=== PATIENT | male | born 1965 | race Caucasian/White ===

== ENCOUNTER → 2017-08-10 | Outpatient (CLI) | payer OTHER ==
[2017-08-10 11:12] LABS: ALT/SGPT 31 U/L (12-78); AST/SGOT 31 U/L (15-37); BLOOD UREA NITROGEN 19 mg/dl (7-18); BUN/CREATININE RATIO 19.4 (10-20); CALCIUM 9.4 mg/dl (8.5-10.1); CARBON DIOXIDE 30 mmol/L (21-32); CHLORIDE 103 mmol/L (98-107); CREATININE 0.96 mg/dl (0.60-1.40); GLUCOSE 97 mg/dl (70-99); POTASSIUM 4.2 mmol/L (3.5-5.1); SODIUM 140 mmol/L (136-145)
[2017-08-10 11:15] LABS: ALB/GLOB RATIO 1.1 (0.9-2); ALKALINE PHOSPHATASE 78 U/L (45-117); CHOLESTEROL 243 mg/dl (0-200); HDL CHOLESTEROL 81 mg/dl; LDL CHOLESTEROL CALCULATED 113 mg/dl; TRIGLYCERIDES 247 mg/dl (0-150); VERY LOW DENSITY LIPOPROT CALC 49 mg/dl
== END | disposition home or self-care (01) ==
LOC: C.LABBC 08:57
PROVIDERS: ATTEND Neuromusculoskeletal Medicine & OMM
DX: Z00.00 Encounter for general adult medical examination without abnormal findings (principal); E66.3 Overweight; E78.5 Hyperlipidemia, unspecified

== ENCOUNTER 2020-12-31 23:42 | Inpatient (IN) ==
[2021-01-01 00:53] LABS: Hematocrit (blood only) 36.8 % (42-52); Hemoglobin 13.3 g/dL (14.0-18.0); Immature Granulocytes # (auto) 0.01 K/uL (0.00-0.02); Immature Granulocytes % (auto) 0.2 %; Lymphocytes # (auto) 0.55 K/uL (1.2-3.4); Lymphocytes % (auto) 9.3 %; Mean Corpuscular Hemoglobin 29.8 pg (25-34); Mean Corpuscular Hgb Conc 36.1 g/dL (32-36); Mean Corpuscular Volume 82.5 fL (80-100); Mean Platelet Volume 9.7 fL (7.4-10.4); Monocytes % (auto) 6.8 %; Neutrophils # (auto) 4.93 K/uL (1.4-6.5); Neutrophils % (auto) 83.7 %; Platelet Count 188 K/uL (130-400); RDW Coefficient of Variation 11.7 % (11.5-14.5); RDW Standard Deviation 35.6 fL (36.4-46.3); Red Blood Count 4.46 M/uL (4.7-6.1); White Blood Count 5.89 K/uL (4.8-10.8)
[2021-01-01 01:05] LABS: INR 1.1 (0.9-1.1); Partial Thromboplastin Ratio 1.1; Partial Thromboplastin Time 29.2 Seconds (21.0-31.0); Prothrombin Time 10.9 Seconds (9.0-12.0)
[2021-01-01 01:12] LABS: Alanine Aminotransferase 79 U/L (12-78); Aspartate Aminotransferase 86 U/L (15-37); Blood Urea Nitrogen 17 mg/dl (7-18); Calcium 8.8 mg/dl (8.5-10.1); Carbon Dioxide 27 mmol/L (21-32); Chloride 97 mmol/L (98-107); Creatinine Clr Calc Pharmacy 101.1 ml/min; Est GFR (African American) 95.5; Est GFR (Non-African American) 82.4; Glucose 129 mg/dl (70-99); Magnesium 2.1 mg/dl (1.8-2.4); Potassium 3.5 mmol/L (3.5-5.1); Sodium 133 mmol/L (136-145)
[2021-01-01 01:17] LABS: Albumin Globulin Ratio 0.8 (0.9-2); Alkaline Phosphatase 86 U/L (45-117); Bilirubin,Total 0.5 mg/dl (0.2-1); Globulin 3.9 gm/dl (2.5-4.0); Total Protein 6.9 gm/dl (6.4-8.2); Troponin I < 0.015 ng/ml (0-0.045)
[2021-01-01] MEDS ORDERED: SODIUM CHLORIDE 0.9% 1000ML 1,000 ML IV ONE (01:38)
[2021-01-01] MEDS ORDERED: ACETAMINOPHEN 500 MG TAB PO STA (01:38)
[2021-01-01] MEDS ORDERED: SODIUM CHLORIDE 0.9% 500 ML IV SCH (01:45)
[2021-01-01] MEDS ORDERED: dexAMETHasone 6 MG in SYRINGE 0 ML IV STA (03:23)
[2021-01-01] MEDS ORDERED: DEXAMETHASONE SOD INJ 4 MG/ML VIAL ONE (03:25)
--- NOTE | 2021-01-01 03:28 | History & Physical Report ---
Date of Service January 01, 2021 Assessment & Plan (1) COVID-19: 55yo C male with Severe Covid-19. Hypoxia with saturation of 78% on room air on arrival. Presently improved on nasal cannula - 92% on 5L. He is febrile and tachypneic. Labs with lymphopenia, mild hyponatremia with Os=011 and mild elevation of liver enzymes - AST=86, ALT=79. CXR with bilateral airspace disease. -Admit to PCU -Maintain isolation precautions - contact and airborne -Check ESR, CRP, Ferritin, LDH, Ddimer, BNP, CK and Procalcitonin -Check Mg and PO4 and replete as needed -Supplemental O2 as needed to maintain saturations 94% -Encourage patient to self-prone where able -Dexamethasone 6mg IV daily - first dose ordered to be given now in ER -Patient is late in illness - positive test from 12/23/20 therefore would most likely not benefit from treatment with Remdesivir or convalescent plasma -Tylenol as needed for pain or fever -Tessalon as needed for cough -Albuterol HFA as needed for SOB Present on Admission?: Yes (2) Depression with anxiety: Chronic -Continue Fluoxetine -Continue Hydroxyzine 50mg po BID as needed for anxiety Present on Admission?: Yes (3) Hyperuricemia: Chronic. Stable -Continue Allopurinol 100mg po daily F/E/N - Patient given NSS x 1.5L in ER, encourage PO intake, monitor electrolytes and replete as needed, Mg and PO4 pending, regular diet as tolerated Ppx - Lovenox 40 BID Code - Full per discussion with patient Dispo - Admit to PCU Present on Admission?: Yes History of Present Illness Chief Complaint: Shortness of breath Primary Care Provider: DO Marquis Galvez Duncan is a 55yo male presenting with Covid-19 PNA, hypoxia. Patient reports having a dry cough ongoing for several weeks as well as fever. He was found to be positive for Covid-19 on 12/23/20. He has been at home with family in quarantine for the last several days. He was seen by his PCP on 12/29/20 via Telehealth visit with complaint of ongoing cough. He was given prescription for Prednisone 9 day taper and Tessalon as needed. He has had worsening of his shortness of breath over the last three days as well as ongoing dry cough, intermittent fevers and fatigue, myalgias. Patient has been monitoring his oxygen saturations over the last several days - states that they were very low this morning - 70%. He presents today with worsening shortness of breath, persistent cough and concern for hypoxia. Upon arrival to the ER he was noted to be ashen in color and diaphoretic, febrile at 38.1, tachycardic at 101, RR of 22 saturating 78% on room air. His saturation improved with supplemental O2. He is presently 92% on 5L NC. He is tachypneic at 30 breaths/minute Patient with no additional complaints at this time. He complains of cough and SOB, otherwise denies chest pain, palpitations, abdominal pain, nausea, vomiting, diarrhea, loss of taste or smell or syncope. Allergies Allergy/AdvReac Type Severity Reaction Status Date / Time No Known Drug Allergies Allergy Unknown Verified 01/01/21 00:25 Home Medications Medication Instructions Recorded Confirmed Type lansoprazole 15 mg capsule,delayed 15 mg PO DAILY PRN cap 08/22/19 01/01/21 History release fluoxetine 20 mg capsule 20 mg PO DAILY #90 cap 08/26/20 01/01/21 Rx hydroxyzine HCl 50 mg tablet 50 mg PO BID PRN #180 tab 09/03/20 01/01/21 Rx allopurinol 100 mg tablet 100 mg PO DAILY #30 tab 12/15/20 01/01/21 Rx colchicine 0.6 mg tablet 0.6 mg PO .COMPLEX #3 tab 12/16/20 01/01/21 Rx fluticasone 100 mcg-salmeterol 50 1 inh INHALATION BID #60 ea 12/28/20 01/01/21 Rx mcg/dose blistr powdr for inhalation benzonatate 200 mg capsule 200 mg PO TID PRN #30 cap 12/29/20 01/01/21 Rx prednisone 20 mg tablet 20 mg PO DAILY #18 tab 12/29/20 01/01/21 Rx promethazine-DM 6.25 mg-15 mg/5 mL 5 ml PO Q6H PRN #473 ml 12/31/20 01/01/21 Rx oral syrup Past Med/Surg History Medical History Depression with anxiety Dyslipidemia GERD without esophagitis Surgical History H/O colonoscopy H/O inguinal hernia repair H/O knee surgery left Knee ACL H/O sinus surgery H/O: hemorrhoidectomy History of vasectomy Family History Grandmother Breast cancer Brother Skin cancer Other Allergies Cancer Denies family history of Ovarian cancer Prostate cancer Diabetes Heart disease Myocardial infarction Colorectal cancer Lung disease Asthma Social History Smoking Status: Never smoker Hx Alcohol Use: Yes Alcohol type: beer and wine Hx Substance Use: No Preferred Language: [place] Communication Ability: Effective Visual Impairment: No Limitations Hearing Ability: Normal marital status: Current Living Situation: Spouse current occupational status: employed 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 Feels Safe at Home: Yes Childhood Exposure to Second-Hand Smoke: No Dental Care, Regularly: Yes Physical Activity Frequency: 3-4 Times per Week Seatbelt Use: always Sunscreen Use: Yes Review of Systems Review of Systems: All systems reviewed & are unremarkable except as noted in HPI & below Physical Exam Physical Exam: General: patient ill in appearance, AA&O x 4 Skin: warm, moist, intact, no rashes or lesions HEENT: NC/AT, PERRL, EOMI, anicteric sclera, conjunctiva without injection, external ear normal to inspection and nontender, nares patent, moist mucus membranes, dentition intact, no oropharyngeal lesions, neck supple, trachea midline, no LAD, no thyromegaly, no JVD Heart: +S1/S2, regular, no m/r/g Lungs: equal air entry bilaterally, no rales/rhonchi/wheezes Abd: +BS, soft, NT/ND, no masses/organomegaly/ascites Ext: warm, 2+ pulses in UE/LE bilaterally, no clubbing/cyanosis or edema Neuro: nonfocal, patient AA&O x 4, speech intact, no facial droop, moving all extremities on command with equal strength 5/5 Results & Data Results & Data ([facility]) Vital Signs (Past 12 Hours) Vital Signs Temp Pulse Resp BP Pulse Ox 01/01/21 02:03 92 01/01/21 02:01 83 37 H 91 03/20/21 02:00 82 35 H 126/78 90 01/01/21 01:45 84 25 H 91 01/01/21 01:31 85 35 H 91 01/01/21 01:30 86 33 H 123/75 92 01/01/21 01:15 86 28 H 94 01/01/21 01:01 90 29 H 91 01/01/21 01:00 89 27 H 133/79 91 01/01/21 00:56 91 01/01/21 00:45 94 H 31 H 91 01/01/21 00:31 96 H 26 H 93 01/01/21 00:30 98 H 30 H 132/85 92 01/01/21 00:20 24 91 01/01/21 00:15 94 H 25 H 01/01/21 00:12 94 H 24 93 01/01/21 00:06 94 H 27 H 136/79 93 12/31/20 23:54 38.1 C H 101 H 22 127/68 78 L Laboratory Results Lab Results 01/01/21 01/01/21 01/01/21 Range/Units 00:30 00:30 00:30 WBC 5.89 (4.8-10.8) K/uL RBC 4.46 L (4.7-6.1) M/uL Hgb 13.3 L (14.0-18.0) g/dL Hct 36.8 L (42-52) % MCV 82.5 (80-100) fL MCH 29.8 (25-34) pg MCHC 36.1 H (32-36) g/dL RDW Std Deviation 35.6 L (36.4-46.3) fL RDW Coeff of Stephanie 11.7 (11.5-14.5) % Plt Count 188 (130-400) K/uL MPV 9.7 (7.4-10.4) fL Immature Gran % (Auto) 0.2 % Neut % (Auto) 83.7 % Lymph % (Auto) 9.3 % [place] % (Auto) 6.8 % Eos % (Auto) 0.0 % Baso % (Auto) 0.0 % Neut # (Auto) 4.93 (1.4-6.5) K/uL Lymph # (Auto) 0.55 L (1.2-3.4) K/uL [place] # (Auto) 0.40 (0.11-0.59) K/uL Eos # (Auto) 0.00 (0-0.5) K/uL Baso # (Auto) 0.00 (0-0.2) K/uL Immature Gran # (Auto) 0.01 (0.00-0.02) K/uL PT 10.9 (9.0-12.0) Seconds INR 1.1 (0.9-1.1) APTT 29.2 (21.0-31.0) Seconds PTT Ratio 1.1 Sodium 133 L (136-145) mmol/L Potassium 3.5 (3.5-5.1) mmol/L Chloride 97 L (98-107) mmol/L Carbon Dioxide 27 (21-32) mmol/L Anion Gap 9.0 (3-11) BUN 17 (7-18) mg/dl Creatinine 1.02 (0.6-1.4) mg/dl Est Cr Clr Drug Dosing 101.1 ml/min Est GFR ( Amer) 95.5 Est GFR (Non-Af Amer) 82.4 BUN/Creatinine Ratio 17.0 (10-20) Glucose 129 H (70-99) mg/dl Lactate (0.4-2.0) mmol/L Calcium 8.8 (8.5-10.1) mg/dl Magnesium 2.1 (1.8-2.4) mg/dl Total Bilirubin 0.5 (0.2-1) mg/dl AST 86 H (15-37) U/L ALT 79 H (12-78) U/L Alkaline Phosphatase 86 (45-117) U/L Troponin I < 0.015 (0-0.045) ng/ml Total Protein 6.9 (6.4-8.2) gm/dl Albumin 3.0 L (3.4-5.0) gm/dl Globulin 3.9 (2.5-4.0) gm/dl Albumin/Globulin Ratio 0.8 L (0.9-2) 01/01/21 01/01/21 Range/Units 00:30 02:12 WBC (4.8-10.8) K/uL RBC (4.7-6.1) M/uL Hgb (14.0-18.0) g/dL Hct (42-52) % MCV (80-100) fL MCH (25-34) pg MCHC (32-36) g/dL RDW Std Deviation (36.4-46.3) fL RDW Coeff of Stephanie (11.5-14.5) % Plt Count (130-400) K/uL MPV (7.4-10.4) fL Immature Gran % (Auto) % Neut % (Auto) % Lymph % (Auto) % [place] % (Auto) % Eos % (Auto) % Baso % (Auto) % Neut # (Auto) (1.4-6.5) K/uL Lymph # (Auto) (1.2-3.4) K/uL [place] # (Auto) (0.11-0.59) K/uL Eos # (Auto) (0-0.5) K/uL Baso # (Auto) (0-0.2) K/uL Immature Gran # (Auto) (0.00-0.02) K/uL PT (9.0-12.0) Seconds INR (0.9-1.1) APTT (21.0-31.0) Seconds PTT Ratio Sodium (136-145) mmol/L Potassium (3.5-5.1) mmol/L Chloride (98-107) mmol/L Carbon Dioxide (21-32) mmol/L Anion Gap (3-11) BUN (7-18) mg/dl Creatinine (0.6-1.4) mg/dl Est Cr Clr Drug Dosing ml/min Est GFR ( Amer) Est GFR (Non-Af Amer) BUN/Creatinine Ratio (10-20) Glucose (70-99) mg/dl Lactate 2.5 H* 1.1 (0.4-2.0) mmol/L Calcium (8.5-10.1) mg/dl Magnesium (1.8-2.4) mg/dl Total Bilirubin (0.2-1) mg/dl AST (15-37) U/L ALT (12-78) U/L Alkaline Phosphatase (45-117) U/L Troponin I (0-0.045) ng/ml Total Protein (6.4-8.2) gm/dl Albumin (3.4-5.0) gm/dl Globulin (2.5-4.0) gm/dl Albumin/Globulin Ratio (0.9-2) Diagnostic Findings CXR - by my interpretation - appears to have bilateral patchy airspace opacities. No consolidation, effusions, PTX Code Status & VTE Plan VTE Prophylaxis Plan VTE Prophylaxis will be ordered: Yes PG Care Time/CCT Total # of Minutes Spent Total Time Spent with Patient: Total time spent is greater than 50% in coordination of care (as documented) at patient's floor/unit and/or counseling patient: Coding Level of Care Code 24546 Initial Inpt Care Lvl 2 Diagnoses COVID-19 U07.1 Depression with anxiety F41.8 Hyperuricemia E79.0
[2021-01-01] MEDS ORDERED: BENZONATATE 100 MG CAPSULE PO PRN (04:59)
[2021-01-01] MEDS ORDERED: hydrOXYzine HCl 25 MG TAB PO PRN (04:59)
[2021-01-01] MEDS ORDERED: ALBUTEROL HFA 8 GM INHALER INH PRN (04:59)
[2021-01-01] MEDS ORDERED: ONDANSETRON INJ 2 MG/ML 2 ML VIAL IV PRN (04:59)
[2021-01-01 06:20] LABS: C Reactive Protein 9.13 mg/dl (0-0.29); Ferritin 1426.3 ng/ml (8-388); Phosphorus 3.3 mg/dl (2.5-4.9)
[2021-01-01 06:47] LABS: D Dimer 940 ug/L FEU (0-500)
[2021-01-01] MEDS: FLUoxetine HCL 20 MG CAP PO SCH (08:39)
[2021-01-01] MEDS: ENOXAPARIN INJ 40 MG/0.4 ML SYR SQ SCH ×2 (08:39→21:20)
[2021-01-01] MEDS: allopurinoL 100 MG TAB PO SCH (08:40)
--- NOTE | 2021-01-01 08:43 | XRay Report ---
XR chest 1V portable CLINICAL HISTORY: SEPSIS COMPARISON STUDY: 12/24/2019 FINDINGS: The heart is enlarged. There are bilateral pulmonary airspace opacities which given history of sepsis likely represent a multifocal pneumonia. Pulmonary edema could appear similar but is felt to be statistically less likely. There are no significant pleural effusions. No pneumothorax is visua lized.[ IMPRESSION: Cardiomegaly and bilateral pulmonary airspace opacities. Likely diagnostic considerations include a multifocal pneumonia versus pulmonary edema with a multifocal pneumonia favored. Clinical and radiographic follow-up is recommended ACT 112: Negative or not required by law. Electronically signed by: Latrell Eddy M.D. 01/01/2021 8:41 AM
--- NOTE | 2021-01-01 10:12 | Electrocardiogram Report ---
Test Reason : Blood Pressure : / mmHG Vent. Rate : 095 BPM Atrial Rate : 095 BPM P-R Int : 170 ms QRS Dur : 096 ms QT Int : 358 ms P-R-T Axes : 017 -06 035 degrees QTc Int : 449 ms Normal sinus rhythm Normal ECG No previous ECGs available Confirmed by Brandon Drummond ([id number]) on 01/01/2021 10:12:25 AM Referred By: REFERRED SELF Confirmed By:Brandon Drummond
[2021-01-01] MEDS ORDERED: guaiFENesin/CODEINE 100MG/10MG 5ML UDC PO PRN (16:06)
--- NOTE | 2021-01-01 19:21 | Emergency Department Note ---
Impression & Plan Hypoxia, Pneumonia due to severe acute respiratory syndrome coronavirus 2 (SARS-CoV-2) ED Provider Note NAME: CUBA APPLE AGE: 55 SEX: M ARRIVES VIA: Walk-In INFORMANT: Patient ED PROVIDER(S): Liss Sky DO CHIEF COMPLAINT: Shortness of breath PLAN: Disposition: Admitted to the [facility] hospitalist service Condition: Guarded MEDICAL DECISION MAKING: This is a 55-year-old male patient who presents to the emergency department with severe hypoxia presumed secondary to COVID-19. The patient had a positive COVID-19 test 9 days ago. He describes monitoring his pulse ox at home over the past 24 hours and getting readings as low as 50 to 70%. Patient has been coughing for the past couple of days to the point that he is unable to sleep. He was given prednisone by his PCP. Chest x-ray shows severe multifocal pneumonia presumed secondary to COVID-19. O2 saturations are supported greater than 90% on supplemental oxygen. The case was discussed with the [facility] hospitalist and they will evaluate for further management. Triage Nursing notes reviewed and agree with them. Prior medical records reviewed Vital Signs: reviewed and remarkable for hypoxia Differential diagnosis: Congestive heart failure, pulmonary embolism, Covid pneumonia, cardiac ischemia ER treatment provided: Supplemental O2 Diagnostics interpreted by me: ECG: Normal sinus rhythm at a rate of [address] segment elevation or signs of ischemia. There is no ectopy. Cardiac Monitoring: Normal sinus rhythm at a rate of 92 Laboratory studies: See below Imaging studies: As per my interpretation Portable chest x-ray: Cardiomegaly with severe bilateral multifocal pneumonia consistent with Covid pneumonia HPI: 55/M arrives for evaluation of shortness of breath and cough. The patient presents to the emergency department with severe hypoxia presumed secondary to COVID-19. The patient was tested positive approximately 9 days ago but his condition is worsened. Over the past 3 days he has been coughing so much that his PCP prescribed prednisone. He has been monitoring his pulse ox at home and tonight he had readings between 50 and 70. He was transported here for evaluation. He describes that his and daughter and himself have been quarantining in their home on 3 different floors. ROS: See above HPI for pertinent positives & negatives. A total of 10 systems reviewed and were otherwise negative. PAST MEDICAL HISTORY:See Below PAST SURGICAL HISTORY:See Below FAMILY HISTORY:See Below SOCIAL HISTORY:See Below HOME MEDICATIONS:See list ALLERGIES:See list VITALS:See Below PHYSICAL EXAMINATION: HEENT: Head - normocephalic and atraumatic. Pupils are equal, round, and reactive to light. Extraocular eye muscles are intact, and sclera are ani cteric. Nose - moist nasal mucosa without discharge. Mouth - moist buccal mucosa. Oropharynx is nonerythematous and there is no tonsillar exudate or edema noted. Neck: Supple; no JVD or cervical lymphadenopathy Heart: Regular rate and rhythm. There is a normal S1 and S2 with no murmurs, clicks, or gallops appreciated. Lungs: Diminished breath sounds in all lung dunlap Abdomen: Soft, completely nontender, nondistended, with good bowel sounds. There are no palpable pulsatile masses or hepatosplenomegaly. There is no guarding, rigidity, or rebound noted. Extremities: No evidence of cyanosis, clubbing, or edema. There are easily palpable peripheral pulses. Skin: warm and diaphoretic with good turgor and no rashes. ED COURSE: Times/Reassessments: 0015: Patient was evaluated in room C10. A complete history and physical was performed. I donned complete PPE as the patient was known Covid positive. An order was placed for continuous cardiac monitoring. The patient was in a normal sinus rhythm at a rate of 98. She saturation was 90% on 6 L by oxygen mask. The patient appeared tachypneic. A twelve-lead EKG was obtained. A portable chest x-ray was performed. I had a conversation with the patient with regards to his CODE STATUS. He requested that we do everything in the event that his condition declined. 0105: I reevaluated the patient at this time. His O2 saturations remained stable. He is hemodynamically stable. He was started on IV normal saline solution. 0215: I spoke with the patient and gave him results of his x-ray and laboratory studies. He states that he is actually feeling better. Explained that he would require admission to the hospital because of his hypoxia. 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 I discussed the case with the [facility] hospitalist and they will evaluate for further management. I have personally spent greater than 45 minutes of critical care time in the direct management of this patient. This includes bedside care, interpretation of diagnostic studies, and testing, discussion with consultants, patient, and family members, and other required patient management activities. This 45 minutes is in excess of all separately billable procedures. Liss Sky DO Past Med/Surg History Medical History (Updated 01/01/21 @ 20:27 by Liss Sky DO) Depression with anxiety Dyslipidemia GERD without esophagitis Surgical History H/O colonoscopy H/O inguinal hernia repair H/O knee surgery left Knee ACL H/O sinus surgery H/O: hemorrhoidectomy History of vasectomy Family History Grandmother Breast cancer Brother Skin cancer Other Allergies Cancer Denies family history of Ovarian cancer Prostate cancer Diabetes Heart disease Myocardial infarction Colorectal cancer Lung disease Asthma Social History Smoking Status: Never smoker Hx Alcohol Use: Yes Alcohol type: beer and wine Hx Substance Use: No Preferred Language: Honduran Communication Ability: Effective Visual Impairment: No Limitations Hearing Ability: Normal Laundry Aide Required: No Beliefs That Will Affect Care: None marital status: Current Living Situation: Spouse current occupational status: employed 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 Feels Safe at Home: Yes Childhood Exposure to Second-Hand Smoke: No Dental Care, Regularly: Yes Physical Activity Frequency: 3-4 Times per Week Seatbelt Use: always Sunscreen Use: Yes Assistive Devices: None Allergies Allergies Allergy/AdvReac Type Severity Reaction Status Date / Time No Known Drug Allergies Allergy Unknown Verified 01/01/21 00:25 Home Meds Home Medications Medication Instructions Recorded Confirmed lansoprazole 15 mg capsule,delayed 15 mg PO DAILY PRN cap 08/22/19 01/01/21 release Previous Rx's Medication Instructions Recorded fluoxetine 20 mg capsule 20 mg PO DAILY #90 cap 08/26/20 hydroxyzine HCl 50 mg tablet 50 mg PO BID PRN #180 tab 09/03/20 allopurinol 100 mg tablet 100 mg PO DAILY #30 tab 12/15/20 colchicine 0.6 mg tablet 0.6 mg PO .COMPLEX #3 tab 12/16/20 fluticasone 100 mcg-salmeterol 50 1 inh INHALATION BID #60 ea 12/28/20 mcg/dose blistr powdr for inhalation benzonatate 200 mg capsule 200 mg PO TID PRN #30 cap 12/29/20 prednisone 20 mg tablet 20 mg PO DAILY #18 tab 12/29/20 promethazine-DM 6.25 mg-15 mg/5 mL 5 ml PO Q6H PRN #473 ml 12/31/20 oral syrup Results & Data (ED) Vital Signs Vital Signs - 24 hr 12/31/20 23:54 01/01/21 00:06 01/01/21 00:12 Temperature 38.1 C H Temperature Source Temporal Artery Scan Pulse Rate 101 H 94 H 94 H Pulse Rate from SpO2 Sensor 94 H 92 H Respiratory Rate 22 27 H 24 Respiratory Effort / Characteristics Non-Labored Spontaneous Respiratory Depth Normal Blood Pressure 127/68 136/79 Blood Pressure Mean 87 98 Pulse Oximetry 78 L 93 93 Oxygen Delivery Method Room Air Oxygen Flow Rate Sepsis Recent Fever Within 48 Hours Yes Sepsis New/Unexplained Change in Mental Status No Sepsis Action Taken by Nursing Physician Notified 01/01/21 00:15 01/01/21 00:20 01/01/21 00:30 Temperature Temperature Source Pulse Rate 94 H 98 H Pulse Rate from SpO2 Sensor 98 H Respiratory Rate 25 H 24 30 H Respiratory Effort / Characteristics Spontaneous Accessory Muscle Use Labored Short of Breath Respiratory Depth Blood Pressure 132/85 Blood Pressure Mean 100 Pulse Oximetry 91 92 Oxygen Delivery Method Nasal Cannula Oxygen Flow Rate 5 Sepsis Recent Fever Within 48 Hours Sepsis New/Unexplained Change in Mental Status Sepsis Action Taken by Nursing 01/01/21 00:31 01/01/21 00:45 01/01/21 00:56 Temperature Temperature Source Pulse Rate 96 H 94 H Pulse Rate from SpO2 Sensor 97 H 95 H Respiratory Rate 26 H 31 H Respiratory Effort / Characteristics Respiratory Depth Blood Pressure Blood Pressure Mean Pulse Oximetry 93 91 91 Oxygen Delivery Method Nasal Cannula Nasal Cannula Nasal Cannula Oxygen Flow Rate 5 5 Sepsis Recent Fever Within 48 Hours Sepsis New/Unexplained Change in Mental Status Sepsis Action Taken by Nursing 01/01/21 01:00 01/01/21 01:01 01/01/21 01:15 Temperature Temperature Source Pulse Rate 89 90 86 Pulse Rate from SpO2 Sensor 89 89 86 Respiratory Rate 27 H 29 H 28 H Respiratory Effort / Characteristics Respiratory Depth Blood Pressure 133/79 Blood Pressure Mean 97 Pulse Oximetry 91 91 94 Oxygen Delivery Method Oxygen Flow Rate Sepsis Recent Fever Within 48 Hours Sepsis New/Unexplained Change in Mental Status Sepsis Action Taken by Nursing 01/01/21 01:30 01/01/21 01:31 01/01/21 01:45 Temperature Temperature Source Pulse Rate 86 85 84 Pulse Rate from SpO2 Sensor 86 85 84 Respiratory Rate 33 H 35 H 25 H Respiratory Effort / Characteristics Respiratory Depth Blood Pressure 123/75 Blood Pressure Mean 91 Pulse Oximetry 92 91 91 Oxygen Delivery Method Oxygen Flow Rate Sepsis Recent Fever Within 48 Hours Sepsis New/Unexplained Change in Mental Status Sepsis Action Taken by Nursing 01/01/21 02:00 01/01/21 02:01 01/01/21 02:03 Temperature Temperature Source Pulse Rate 82 83 Pulse Rate from SpO2 Sensor 83 83 Respiratory Rate 35 H 37 H Respiratory Effort / Characteristics Respiratory Depth Blood Pressure 126/78 Blood Pressure Mean 94 Pulse Oximetry 90 91 92 Oxygen Delivery Method Nasal Cannula Oxygen Flow Rate 5 Sepsis Recent Fever Within 48 Hours Sepsis New/Unexplained Change in Mental Status Sepsis Action Taken by Nursing 01/01/21 02:10 01/01/21 02:20 01/01/21 02:30 Temperature Temperature Source Pulse Rate 88 86 86 Pulse Rate from SpO2 Sensor 88 86 86 Respiratory Rate 31 H 20 28 H Respiratory Effort / Characteristics Respiratory Depth Blood Pressure Blood Pressure Mean Pulse Oximetry 92 92 91 Oxygen Delivery Method Oxygen Flow Rate Sepsis Recent Fever Within 48 Hours Sepsis New/Unexplained Change in Mental Status Sepsis Action Taken by Nursing 01/01/21 02:40 01/01/21 02:50 Temperature Temperature Source Pulse Rate 86 82 Pulse Rate from SpO2 Sensor 87 81 Respiratory Rate 25 H 31 H Respiratory Effort / Characteristics Respiratory Depth Blood Pressure Blood Pressure Mean Pulse Oximetry 89 L 90 Oxygen Delivery Method Oxygen Flow Rate Sepsis Recent Fever Within 48 Hours Sepsis New/Unexplained Change in Mental Status Sepsis Action Taken by Nursing Laboratory Data Result diagrams: 01/01/21 00:30 01/01/21 00:30 Lab Results 01/01/21 01/01/21 01/01/21 Range/Units 00:30 00:30 00:30 WBC 5.89 (4.8-10.8) K/uL RBC 4.46 L (4.7-6.1) M/uL Hgb 13.3 L (14.0-18.0) g/dL Hct 36.8 L (42-52) % MCV 82.5 (80-100) fL MCH 29.8 (25-34) pg MCHC 36.1 H (32-36) g/dL RDW Std Deviation 35.6 L (36.4-46.3) fL RDW Coeff of Stephanie 11.7 (11.5-14.5) % Plt Count 188 (130-400) K/uL MPV 9.7 (7.4-10.4) fL Immature Gran % (Auto) 0.2 % Neut % (Auto) 83.7 % Lymph % (Auto) 9.3 % Walker % (Auto) 6.8 % Eos % (Auto) 0.0 % Baso % (Auto) 0.0 % Neut # (Auto) 4.93 (1.4-6.5) K/uL Lymph # (Auto) 0.55 L (1.2-3.4) K/uL Walker # (Auto) 0.40 (0.11-0.59) K/uL Eos # (Auto) 0.00 (0-0.5) K/uL Baso # (Auto) 0.00 (0-0.2) K/uL Immature Gran # (Auto) 0.01 (0.00-0.02) K/uL PT 10.9 (9.0-12.0) Seconds INR 1.1 (0.9-1.1) APTT 29.2 (21.0-31.0) Seconds PTT Ratio 1.1 Sodium 133 L (136-145) mmol/L Potassium 3.5 (3.5-5.1) mmol/L Chloride 97 L (98-107) mmol/L Carbon Dioxide 27 (21-32) mmol/L Anion Gap 9.0 (3-11) BUN 17 (7-18) mg/dl Creatinine 1.02 (0.6-1.4) mg/dl Est Cr Clr Drug Dosing 101.1 ml/min Est GFR ( Amer) 95.5 Est GFR (Non-Af Amer) 82.4 BUN/Creatinine Ratio 17.0 (10-20) Glucose 129 H (70-99) mg/dl Lactate (0.4-2.0) mmol/L Calcium 8.8 (8.5-10.1) mg/dl Magnesium 2.1 (1.8-2.4) mg/dl Total Bilirubin 0.5 (0.2-1) mg/dl AST 86 H (15-37) U/L ALT 79 H (12-78) U/L Alkaline Phosphatase 86 (45-117) U/L Troponin I < 0.015 (0-0.045) ng/ml Total Protein 6.9 (6.4-8.2) gm/dl Albumin 3.0 L (3.4-5.0) gm/dl Globulin 3.9 (2.5-4.0) gm/dl Albumin/Globulin Ratio 0.8 L (0.9-2) 01/01/21 01/01/21 Range/Units 00:30 02:12 WBC (4.8-10.8) K/uL RBC (4.7-6.1) M/uL Hgb (14.0-18.0) g/dL Hct (42-52) % MCV (80-100) fL MCH (25-34) pg MCHC (32-36) g/dL RDW Std Deviation (36.4-46.3) fL RDW Coeff of Stephanie (11.5-14.5) % Plt Count (130-400) K/uL MPV (7.4-10.4) fL Immature Gran % (Auto) % Neut % (Auto) % Lymph % (Auto) % Walker % (Auto) % Eos % (Auto) % Baso % (Auto) % Neut # (Auto) (1.4-6.5) K/uL Lymph # (Auto) (1.2-3.4) K/uL Walker # (Auto) (0.11-0.59) K/uL Eos # (Auto) (0-0.5) K/uL Baso # (Auto) (0-0.2) K/uL Immature Gran # (Auto) (0.00-0.02) K/uL PT (9.0-12.0) Seconds INR (0.9-1.1) APTT (21.0-31.0) Seconds PTT Ratio Sodium (136-145) mmol/L Potassium (3.5-5.1) mmol/L Chloride (98-107) mmol/L Carbon Dioxide (21-32) mmol/L Anion Gap (3-11) BUN (7-18) mg/dl Creatinine (0.6-1.4) mg/dl Est Cr Clr Drug Dosing ml/min Est GFR ( Amer) Est GFR (Non-Af Amer) BUN/Creatinine Ratio (10-20) Glucose (70-99) mg/dl Lactate 2.5 H* 1.1 (0.4-2.0) mmol/L Calcium (8.5-10.1) mg/dl Magnesium (1.8-2.4) mg/dl Total Bilirubin (0.2-1) mg/dl AST (15-37) U/L ALT (12-78) U/L Alkaline Phosphatase (45-117) U/L Troponin I (0-0.045) ng/ml Total Protein (6.4-8.2) gm/dl Albumin (3.4-5.0) gm/dl Globulin (2.5-4.0) gm/dl Albumin/Globulin Ratio (0.9-2) Administered Medications Allopurinol (Allopurinol 100 Mg Tab) 100 mg PO DAILY YASMIN Stop: 01/31/21 08:59 Last Admin: 01/01/21 08:40 Dose: 100 mg Documented by: [id number] Enoxaparin Sodium (Enoxaparin Inj 40 Mg/0.4 Ml Syr) 40 mg SQ Q12H YASMIN Stop: 01/31/21 08:59 Last Admin: 01/01/21 08:39 Dose: 40 mg Documented by: [id number] Fluoxetine HCl (Fluoxetine Hcl 20 Mg Cap) 20 mg PO DAILY YASMIN Stop: 01/31/21 08:59 Last Admin: 01/01/21 08:39 Dose: 20 mg Documented by: [id number] Hydroxyzine HCl (Hydroxyzine Hcl 25 Mg Tab) 50 mg PO BID PRN PRN Reason: anxiety and depression Stop: 01/31/21 04:58 Last Admin: 01/01/21 08:40 Dose: 50 mg Documented by: [id number] Discontinued Medications Acetaminophen (Acetaminophen 500 Mg Tab) 1,000 mg PO NOW STA Stop: 01/01/21 01:39 Last Admin: 01/01/21 01:46 Dose: 1,000 mg Documented by: [id number] Dexamethasone (Dexamethasone Sod Inj 4 Mg/Ml Vial) Confirm Administered Dose 8 mg .ROUTE .STK-MED ONE Stop: 01/01/21 03:26 Last Admin: 01/01/21 03:35 Dose: Not Given Documented by: [id number] Sodium Chloride (Nss 1000ml) 1,000 mls @ 999 mls/hr IV .Q1H1M ONE Stop: 01/01/21 02:38 Last Infusion: 01/01/21 02:55 Dose: 0 mls/hr Documented by: [id number] Admin: 01/01/21 01:46 Dose: 999 mls/hr Documented by: [id number] Sodium Chloride (Nss) 500 mls @ 125 mls/hr IV .Q4H YASMIN Stop: 01/31/21 01:44 Last Infusion: 01/01/21 05:03 Dose: 0 mls/hr Documented by: [id number] Admin: 01/01/21 01:46 Dose: 125 mls/hr Documented by: [id number] Dexamethasone 6 mg/ Syringe 1.5 mls @ 1 mls/min IV NOW STA Stop: 01/01/21 03:24 Last Admin: 01/01/21 03:35 Dose: 1 mls/min Documented by: [id number] Discharge Plan Visit Data Chief Complaint: Illness Stated Complaint: +COVID,POX 65-70%, REF BY DOC ED Provider: Liss Sky Discharge Problem: Hypoxia, Pneumonia due to severe acute respiratory syndrome coronavirus 2 (SARS-CoV-2) Patient Disposition: Admitted As Inpatient Discharge Instructions Interventions: ED Discharge Assessment Last Done: 01/01/21 04:10
--- NOTE | 2021-01-01 21:36 | History & Physical Bridge Note ---
Date of Service January 01, 2021 History & Physical Bridge Note I have examined the patient, reviewed the History & Physical and in the interval since the performance of the History & Physical I have noted the following changes of clinical significance: patient doing reasonably well, was down to 8L oxymask then took his mask off briefly and desaturated to 70's put back up to 10L, took about 2 minutes and was back up to 88%, no distress poor appetite, not drinking much he has been laying on his side periodically, sats will go to 90% on his side discussed the importance of laying prone if he can discussed that this will take several days to a week, don't be alarmed if he requires more oxygen, discussed Vapotherm as next option will give him Codeine for his cough which is dry will try Budesonide nebs for some more anti-inflammatory treatment
[2021-01-02] MEDS: BUDESONIDE 0.25 MG/2 ML VIAL (PULMICORT) NEB SCH (07:56)
[2021-01-02] MEDS: allopurinoL 100 MG TAB PO SCH (08:01)
[2021-01-02] MEDS: FLUoxetine HCL 20 MG CAP PO SCH (08:01)
[2021-01-02] MEDS: ENOXAPARIN INJ 40 MG/0.4 ML SYR SQ SCH ×2 (08:01→21:35)
[2021-01-02] MEDS: dexAMETHasone 6 MG in SYRINGE 0 ML IV SCH (08:02)
--- NOTE | 2021-01-02 11:11 | Hospitalist Progress Note ---
Date of Service January 02, 2021 Assessment & Plan (1) Acute respiratory failure with hypoxia: due to COVID 19 pneumonia on 15L mask today, saturations 89%, takes mask off frequently to eat/drink no distress or labored breathing will try Vapotherm so he can keep oxygen in place all the time he is compliant with laying prone (2) COVID-19: 55yo C male with Severe Covid-19. Hypoxia with saturation of 78% on room air on arrival. Presently improved on nasal cannula - 92% on 5L. He is febrile and tachypneic. Labs with lymphopenia, mild hyponatremia with Oa=405 and mild elevation of liver enzymes - AST=86, ALT=79. CXR with bilateral airspace disease. continue dexamethasone 6mg IV daily, day 2 added Budesonide nebulizer daily eating and drinking well will advance to Vapotherm today since he constantly takes off his oxymask should do well, just needs several days of high flow oxygen he is very frustrated being here, encouraged him to be patient, his lungs need time to heal (3) Depression with anxiety: Chronic -Continue Fluoxetine -Continue Hydroxyzine 50mg po BID as needed for anxiety (4) Hyperuricemia: Chronic. Stable -Continue Allopurinol 100mg po daily Ppx - Lovenox 40 BID Code - Full per discussion with patient Dispo - Admit to PCU Admission and Anticipated Discharge Date Admission Date: January 01, 2021 Subjective patient says he thinks he feels a little bit better than yesterday however, he is up to 15L on oxymask, keeps taking it down to eat/drink and wash up, desaturates quickly without oxygen saturations on the mask are 89% no distress at all, has a dry cough, brought up some phlegm this morning eating a little more, drinking fluids no labs today will call his and update Review of Systems Review of Systems: All systems reviewed & are unremarkable except as noted in Subjective Constitutional: no fever, no fatigue and no weakness Respiratory: + cough, + dyspnea and + dyspnea on exertion; no sputum production and no wheezing Cardiovascular: no chest pain, no palpitations, no syncope and no edema Gastrointestinal: no abdominal pain, no nausea, no vomiting, no constipation and no diarrhea/loose stools Physical Exam Constitutional: WD/WN, vitals as above comfortable; no acute distress Neck: trachea midline, no thyromegaly Respiratory: normal respiratory effort and + cough; no respiratory distress and no labored breathing Auscultation: lungs clear to auscultation bilaterally Cardiovascular: RRR, no murmur, no edema Gastrointestinal (Abdomen): normal bowel sounds, soft, nontender, no hepatosplenomegaly Musculoskeletal: no cyanosis or clubbing, extremities motor strength 5/5 Skin: no rashes, warm and dry Neurologic: patellar DTR's 2+ bilat, sensation intact and PERRL, EOMI, accommodation nl, no face palsy, no dysarthria Psychiatric: A+Ox3, euthymic affect Lymphatic: no cervical or axillary lymphadenopathy Results & Data Results & Data ([facility]) Vital Signs (Past 12 Hours) Vital Signs Temp Pulse Pulse Resp BP Pulse Ox Pulse Ox 01/02/21 11:00 36.8 C 79 20 119/72 92 01/02/21 08:19 71 01/02/21 08:06 73 18 92 01/02/21 04:59 90 01/02/21 01:43 75 01/01/21 23:32 36.6 C 74 18 107/61 91 Medications Administered Current Inpatient Medications Acetaminophen (Acetaminophen 325 Mg Tab) 650 mg PO Q4H PRN PRN Reason: Pain or Fever Stop: 01/31/21 04:58 Albuterol (Albuterol Hfa 8 Gm Inhaler) 2 puffs INH Q4H PRN PRN Reason: Shortness Of Breath Stop: 01/31/21 04:58 Allopurinol (Allopurinol 100 Mg Tab) 100 mg PO DAILY YASMIN Stop: 01/31/21 08:59 Last Admin: 01/02/21 08:01 Dose: 100 mg Documented by: Benzonatate (Benzonatate 100 Mg Capsule) 200 mg PO TID PRN PRN Reason: cough Stop: 01/31/21 04:58 Budesonide (Budesonide 0.25 Mg/2 Ml Vial (Pulmicort)) 0.25 mg NEB DAILY YASMIN Stop: 02/01/21 08:59 Last Admin: 01/02/21 07:56 Dose: 0.25 mg Documented by: Enoxaparin Sodium (Enoxaparin Inj 40 Mg/0.4 Ml Syr) 40 mg SQ Q12H YASMIN Stop: 01/31/21 08:59 Last Admin: 01/02/21 08:01 Dose: 40 mg Documented by: Fluoxetine HCl (Fluoxetine Hcl 20 Mg Cap) 20 mg PO DAILY YASMIN Stop: 01/31/21 08:59 Last Admin: 01/02/21 08:01 Dose: 20 mg Documented by: Guaifenesin/Codeine Phosphate (Guaifenesin/Codeine 100mg/10mg 5ml Udc) 5 ml PO Q6H PRN PRN Reason: Cough Stop: 01/31/21 16:05 Hydroxyzine HCl (Hydroxyzine Hcl 25 Mg Tab) 50 mg PO BID PRN PRN Reason: anxiety and depression Stop: 01/31/21 04:58 Last Admin: 01/01/21 08:40 Dose: 50 mg Documented by: Dexamethasone 6 mg/ Syringe 1.5 mls @ 1 mls/min IV Q24H YASMIN Stop: 02/01/21 08:59 Last Admin: 01/02/21 08:02 Dose: 1 mls/min Documented by: Ondansetron HCl (Ondansetron Inj 2 Mg/Ml 2 Ml Vial) 4 mg IV Q6H PRN PRN Reason: Nausea Stop: 01/31/21 04:58 PG Care Time/CCT Total # of Minutes Spent Total Time Spent: 32 Total Time Spent with Patient: Total time spent is greater than 50% in coordination of care (as documented) at patient's floor/unit and/or counseling patient: Coding Level of Care Code 77603 Subseq Hosp Care Lvl 3 Diagnoses Acute respiratory failure with hypoxia J96.01 COVID-19 U07.1 Depression with anxiety F41.8 Hyperuricemia E79.0
[2021-01-02] MEDS ORDERED: ALUMINUM/MAGNESIUM SUSP 30 ML UDC PO PRN (19:48)
[2021-01-02] MEDS: FAMOTIDINE 20 MG TAB PO SCH (21:35)
[2021-01-03] MEDS: BUDESONIDE 0.25 MG/2 ML VIAL (PULMICORT) NEB SCH (07:24)
[2021-01-03 07:33] LABS: Hematocrit (blood only) 37.6 % (42-52); Hemoglobin 13.3 g/dL (14.0-18.0); Mean Corpuscular Hemoglobin 29.7 pg (25-34); Mean Corpuscular Hgb Conc 35.4 g/dL (32-36); Mean Corpuscular Volume 83.9 fL (80-100); Mean Platelet Volume 9.3 fL (7.4-10.4); Platelet Count 231 K/uL (130-400); RDW Coefficient of Variation 11.7 % (11.5-14.5); RDW Standard Deviation 35.6 fL (36.4-46.3); Red Blood Count 4.48 M/uL (4.7-6.1); White Blood Count 7.12 K/uL (4.8-10.8)
[2021-01-03 08:03] LABS: Albumin Level 2.5 gm/dl (3.4-5.0); BUN Creatinine Ratio 18.9 (10-20); Calcium 8.8 mg/dl (8.5-10.1); Creatinine Clr Calc Pharmacy 116.3 ml/min; Est GFR (African American) 111.6; Est GFR (Non-African American) 96.3; Potassium 3.6 mmol/L (3.5-5.1)
[2021-01-03 08:06] LABS: Albumin Globulin Ratio 0.6 (0.9-2); Bilirubin,Total 0.8 mg/dl (0.2-1); Globulin 4.2 gm/dl (2.5-4.0); Total Protein 6.7 gm/dl (6.4-8.2)
[2021-01-03] MEDS: ENOXAPARIN INJ 40 MG/0.4 ML SYR SQ SCH ×2 (10:04→22:05)
[2021-01-03] MEDS: allopurinoL 100 MG TAB PO SCH (10:04)
[2021-01-03] MEDS: dexAMETHasone 6 MG in SYRINGE 0 ML IV SCH (10:04)
[2021-01-03] MEDS: FLUoxetine HCL 20 MG CAP PO SCH (10:05)
[2021-01-03] MEDS: FAMOTIDINE 20 MG TAB PO SCH (10:05)
[2021-01-03] MEDS ORDERED: MELATONIN 3 MG TAB PO PRN (11:15)
--- NOTE | 2021-01-03 11:50 | Hospitalist Progress Note ---
Date of Service January 03, 2021 Assessment & Plan (1) Acute respiratory failure with hypoxia: due to COVID 19 pneumonia, improving slowly Now on HFNC, saturations 89-90%, tolerating no distress or labored breathing he is compliant with laying prone and is OOB to chair -continue dexamethasone -continue albuterol prn (2) COVID-19: 55yo C male with Severe Covid-19. Hypoxia with saturation of 78% on room air on arrival. Presently improved as above He is no longer febrile or tachypneic. On admission, labs with lymphopenia, mild hyponatremia with Di=812 and mild elevation of liver enzymes - AST=86, ALT=79. CXR with bilateral airspace disease. continue dexamethasone 6mg IV daily, day 3 of 10 -not candidate for Remedsevir or plasma as outside window -continue Budesonide nebulizer daily eating and drinking well wean off HFNC as tolerated - robitussin w/ codeine or tessalon perles for cough -pepcid for GERD espeially while on steroids should do well, just needs several days of high flow oxygen he is very frustrated being here, encouraged him to be patient, his lungs need time to heal (3) Depression with anxiety: Chronic -Continue Fluoxetine -Continue Hydroxyzine 50mg po BID as needed for anxiety -add melatonin prn sleep (4) Hyperuricemia: Chronic. Stable -Continue Allopurinol 100mg po daily Ppx - Lovenox 40 BID Code - Full per discussion with patient Dispo - continued stay on PCU Admission and Anticipated Discharge Date Admission Date: January 01, 2021 Subjective Feeling tired, couldn't sleep much last night. Eating better, appetite picking up, no BM in a couple days but yesterdya was really the first he's eaten in a week. Denies N/V/D, is makin gurine. Has a mild right sided WALDRON that improves w/ massage. Some SOB but doing ok on HFNC. Is lying prone and getting OOB to chair. Tele with NSR 60-70s Review of Systems Review of Systems: All systems reviewed & are unremarkable except as noted in HPI & below Physical Exam Constitutional: WD/WN, vitals as above Eyes: + anicteric sclerae Neck: trachea midline, no thyromegaly Respiratory: normal respiratory effort (with HFNC in place,POX 89-90% with talking) Auscultation: + wheezes (occasional); no crackles and no rhonchi Cardiovascular: RRR, no murmur, no edema Extremities: no calf tenderness Chest (Breasts): Chest: normal inspection of chest Gastrointestinal (Abdomen): normal bowel sounds, soft, nontender, no hepatosplenomegaly Musculoskeletal: Extremities: extremities normal to inspection; no cyanosis and no clubbing Skin: no rashes, warm and dry Neurologic: moves all extremities and awake; no focal motor deficits Psychiatric: A+Ox3, euthymic affect Lymphatic: no lymphedema Results & Data Results & Data ([facility]) Vital Signs (Past 12 Hours) Vital Signs Temp Pulse Pulse Resp BP Pulse Ox Pulse Ox 01/03/21 10:52 75 01/03/21 07:51 37.4 C 77 16 124/76 87 L 01/03/21 07:25 73 19 94 01/03/21 04:00 88 L 01/03/21 03:43 36.8 C 68 20 121/76 91 01/03/21 03:22 63 20 90 01/03/21 00:12 69 Laboratory Results 01/03/21 01/03/21 Range/Units 07:21 07:21 WBC 7.12 (4.8-10.8) K/uL RBC 4.48 L (4.7-6.1) M/uL Hgb 13.3 L (14.0-18.0) g/dL Hct 37.6 L (42-52) % MCV 83.9 (80-100) fL MCH 29.7 (25-34) pg MCHC 35.4 (32-36) g/dL RDW Std Deviation 35.6 L (36.4-46.3) fL RDW Coeff of Stephanie 11.7 (11.5-14.5) % Plt Count 231 (130-400) K/uL MPV 9.3 (7.4-10.4) fL Sodium 136 (136-145) mmol/L Potassium 3.6 (3.5-5.1) mmol/L Chloride 101 (98-107) mmol/L Carbon Dioxide 31 (21-32) mmol/L Anion Gap 4.0 (3-11) BUN 17 (7-18) mg/dl Creatinine 0.89 (0.6-1.4) mg/dl Est Cr Clr Drug Dosing 116.3 ml/min Est GFR ( Amer) 111.6 Est GFR (Non-Af Amer) 96.3 BUN/Creatinine Ratio 18.9 (10-20) Glucose 100 H (70-99) mg/dl Calcium 8.8 (8.5-10.1) mg/dl Total Bilirubin 0.8 (0.2-1) mg/dl AST 40 H (15-37) U/L ALT 64 (12-78) U/L Alkaline Phosphatase 131 H (45-117) U/L Total Protein 6.7 (6.4-8.2) gm/dl Albumin 2.5 L (3.4-5.0) gm/dl Globulin 4.2 H (2.5-4.0) gm/dl Albumin/Globulin Ratio 0.6 L (0.9-2) PG Care Time/CCT Total # of Minutes Spent Total Time Spent with Patient: Total time spent is greater than 50% in coordination of care (as documented) at patient's floor/unit and/or counseling patient: Coding Level of Care Code 78158 Subseq Hosp Care Lvl 3 Diagnoses Acute respiratory failure with hypoxia J96.01 COVID-19 U07.1 Depression with anxiety F41.8 Hyperuricemia E79.0
[2021-01-03] MEDS: ACETAMINOPHEN 325 MG TAB PO PRN (12:14)
[2021-01-04] MEDS: ACETAMINOPHEN 325 MG TAB PO PRN (04:38)
[2021-01-04] MEDS: BUDESONIDE 0.25 MG/2 ML VIAL (PULMICORT) NEB SCH (07:34)
[2021-01-04 07:40] LABS: Basophils # (auto) 0.01 K/uL (0-0.2); Basophils % (auto) 0.1 %; Eosinophils # (auto) 0.09 K/uL (0-0.5); Eosinophils % (auto) 1.2 %; Hematocrit (blood only) 36.9 % (42-52); Hemoglobin 13.2 g/dL (14.0-18.0); Immature Granulocytes # (auto) 0.05 K/uL (0.00-0.02); Immature Granulocytes % (auto) 0.7 %; Lymphocytes # (auto) 0.54 K/uL (1.2-3.4); Lymphocytes % (auto) 7.5 %; Mean Corpuscular Hemoglobin 29.5 pg (25-34); Mean Corpuscular Hgb Conc 35.8 g/dL (32-36); Mean Corpuscular Volume 82.6 fL (80-100); Mean Platelet Volume 9.3 fL (7.4-10.4); Monocytes # (auto) 0.32 K/uL (0.11-0.59); Monocytes % (auto) 4.4 %; Neutrophils # (auto) 6.22 K/uL (1.4-6.5); Neutrophils % (auto) 86.1 %; Platelet Count 241 K/uL (130-400); RDW Coefficient of Variation 11.6 % (11.5-14.5); RDW Standard Deviation 34.9 fL (36.4-46.3); Red Blood Count 4.47 M/uL (4.7-6.1); White Blood Count 7.23 K/uL (4.8-10.8)
[2021-01-04] MEDS: ENOXAPARIN INJ 40 MG/0.4 ML SYR SQ SCH ×2 (08:13→22:34)
[2021-01-04] MEDS: allopurinoL 100 MG TAB PO SCH (08:13)
[2021-01-04] MEDS: FAMOTIDINE 20 MG TAB PO SCH (08:13)
[2021-01-04] MEDS: FLUoxetine HCL 20 MG CAP PO SCH (08:13)
[2021-01-04 08:14] LABS: Albumin Level 2.4 gm/dl (3.4-5.0); BUN Creatinine Ratio 25.3 (10-20); C Reactive Protein 12.1 mg/dl (0-0.29); Calcium 9.2 mg/dl (8.5-10.1); Creatinine Clr Calc Pharmacy 125.7 ml/min; Est GFR (Non-African American) 100.1; Potassium 3.5 mmol/L (3.5-5.1)
[2021-01-04] MEDS: dexAMETHasone 6 MG in SYRINGE 0 ML IV SCH (08:14)
[2021-01-04 08:17] LABS: Albumin Globulin Ratio 0.6 (0.9-2); Globulin 4.2 gm/dl (2.5-4.0); Total Protein 6.6 gm/dl (6.4-8.2)
--- NOTE | 2021-01-04 17:11 | Hospitalist Progress Note ---
Date of Service January 04, 2021 Assessment & Plan (1) Acute respiratory failure with hypoxia: due to COVID 19 pneumonia, not much improvement today Remains on HFNC, saturations 85-92% on 85-90% FiO2, 35 L no distress or labored breathing he is compliant with lying prone and is OOB to chair -continue dexamethasone 6 mg IV daily -continue albuterol prn -Add flutter valve 3 times daily, incentive spirometry -Follow chest x-ray in the morning (2) COVID-19: 55yo C male with Severe Covid-19. Hypoxia with saturation of 78% on room air on arrival. Still with fever again on 01/04 On admission, labs with lymphopenia, mild hyponatremia with Rr=885 and mild elevation of liver enzymes - AST=86, ALT=79. CXR with bilateral airspace disease. continue dexamethasone 6mg IV daily, day 4 of 10 -not candidate for Remedsevir or plasma as outside window -continue Budesonide nebulizer daily eating and drinking well wean off HFNC as tolerated - robitussin w/ codeine or tessalon perles for cough -pepcid for GERD especially while on steroids (3) Depression with anxiety: Chronic -Continue Fluoxetine -Continue Hydroxyzine 50mg po BID as needed for anxiety -add melatonin prn sleep (4) Hyperuricemia: Chronic. Stable -Continue Allopurinol 100mg po daily Ppx - Lovenox 40 BID Code - Full per discussion with patient Dispo - continued stay on PCU Admission and Anticipated Discharge Date Admission Date: January 01, 2021 Subjective Patient remains frustrated at his seemingly slow progress with improvement in oxygenation. He was just transferred to the new Covid unit when I saw him and his oxygen levels were staying in the mid to upper 80s until his FiO2 was increased to 90%. He denied fatigue today. He is eating a little bit more. Wants to be able to drink fluids and go to the bathroom without asking for help. He did prone for a couple hours at a time earlier in the day. Before his move to his new room, he reports he was staying at 90-92% all day on 85% FiO2. Telemetry with normal sinus rhythm, PVCs, couplets, rate 70s-80s Review of Systems Review of Systems: All systems reviewed & are unremarkable except as noted in HPI & below Physical Exam Constitutional: WD/WN, vitals as above Eyes: + anicteric sclerae Neck: trachea midline, no thyromegaly Respiratory: normal respiratory effort Auscultation: + diminished lung sounds (Throughout); no crackles, no rhonchi and no wheezes Cardiovascular: RRR, no murmur, no edema Extremities: no calf tenderness Chest (Breasts): Chest: normal inspection of chest Gastrointestinal (Abdomen): normal bowel sounds, soft, nontender, no hepatosplenomegaly Musculoskeletal: Extremities: extremities normal to inspection; no cyanosis and no clubbing Skin: no rashes, warm and dry Neurologic: moves all extremities and awake; no focal motor deficits Psychiatric: Orientation: alert and oriented x 3 Speech: normal rate/rhythm/volume of speech Affect: + flat affect Lymphatic: no lymphedema Results & Data Results & Data ([facility]) Vital Signs (Past 12 Hours) Vital Signs Temp Pulse Pulse Resp BP Pulse Ox 01/04/21 16:40 85 L 01/04/21 16:06 36.8 C 75 20 110/63 85 L 01/04/21 15:20 81 20 91 01/04/21 13:30 36.8 C 77 20 89 L 01/04/21 11:04 80 20 90 01/04/21 08:00 75 01/04/21 07:34 68 21 89 L 01/04/21 07:30 37.4 C 70 20 112/69 89 L Laboratory Results 01/04/21 01/04/21 Range/Units 07:00 07:00 WBC 7.23 (4.8-10.8) K/uL RBC 4.47 L (4.7-6.1) M/uL Hgb 13.2 L (14.0-18.0) g/dL Hct 36.9 L (42-52) % MCV 82.6 (80-100) fL MCH 29.5 (25-34) pg MCHC 35.8 (32-36) g/dL RDW Std Deviation 34.9 L (36.4-46.3) fL RDW Coeff of Stephanie 11.6 (11.5-14.5) % Plt Count 241 (130-400) K/uL MPV 9.3 (7.4-10.4) fL Immature Gran % (Auto) 0.7 % Neut % (Auto) 86.1 % Lymph % (Auto) 7.5 % [place] % (Auto) 4.4 % Eos % (Auto) 1.2 % Baso % (Auto) 0.1 % Neut # (Auto) 6.22 (1.4-6.5) K/uL Lymph # (Auto) 0.54 L (1.2-3.4) K/uL [place] # (Auto) 0.32 (0.11-0.59) K/uL Eos # (Auto) 0.09 (0-0.5) K/uL Baso # (Auto) 0.01 (0-0.2) K/uL Immature Gran # (Auto) 0.05 H (0.00-0.02) K/uL Sodium 136 (136-145) mmol/L Potassium 3.5 (3.5-5.1) mmol/L Chloride 102 (98-107) mmol/L Carbon Dioxide 26 (21-32) mmol/L Anion Gap 8.0 (3-11) BUN 21 H (7-18) mg/dl Creatinine 0.81 (0.6-1.4) mg/dl Est Cr Clr Drug Dosing 125.7 ml/min Est GFR ( Amer) 116.0 Est GFR (Non-Af Amer) 100.1 BUN/Creatinine Ratio 25.3 H (10-20) Glucose 105 H (70-99) mg/dl Calcium 9.2 (8.5-10.1) mg/dl Total Bilirubin 1.0 (0.2-1) mg/dl AST 42 H (15-37) U/L ALT 70 (12-78) U/L Alkaline Phosphatase 151 H (45-117) U/L C-Reactive Protein 12.10 H (0-0.29) mg/dl Total Protein 6.6 (6.4-8.2) gm/dl Albumin 2.4 L (3.4-5.0) gm/dl Globulin 4.2 H (2.5-4.0) gm/dl Albumin/Globulin Ratio 0.6 L (0.9-2) PG Care Time/CCT Total # of Minutes Spent Total Time Spent with Patient: Total time spent is greater than 50% in coordination of care (as documented) at patient's floor/unit and/or counseling patient: Coding Level of Care Code 29698 Subseq Hosp Care Lvl 3 Diagnoses Acute respiratory failure with hypoxia J96.01 COVID-19 U07.1 Depression with anxiety F41.8 Hyperuricemia E79.0
[2021-01-05] MEDS: BUDESONIDE 0.25 MG/2 ML VIAL (PULMICORT) NEB SCH (07:26)
[2021-01-05] MEDS: dexAMETHasone 6 MG in SYRINGE 0 ML IV SCH (07:52)
[2021-01-05] MEDS: allopurinoL 100 MG TAB PO SCH (07:52)
[2021-01-05] MEDS: FLUoxetine HCL 20 MG CAP PO SCH (07:52)
[2021-01-05] MEDS: FAMOTIDINE 20 MG TAB PO SCH (07:52)
[2021-01-05] MEDS: ENOXAPARIN INJ 40 MG/0.4 ML SYR SQ SCH ×2 (07:52→21:52)
--- NOTE | 2021-01-05 08:42 | XRay Report ---
XR chest 1V portable CLINICAL HISTORY: Follow-up COVID Pneumonia COMPARISON STUDY: Chest radiograph January 01, 2021. FINDINGS: Lung volumes are normal. There is no pneumothorax or pleural effusion. Cardiomegaly is unch anged. Left lung airspace opacity has increased. Right lung airspace opacities are similar to prior e xam. IMPRESSION: Progression of bilateral airspace opacities, greater within the left lung. The findings represent multifocal pneumonia. ACT 112: Negative or not required by law. Electronically signed by: Jh Hodge M.D. 01/05/2021 8:40 AM
[2021-01-05] MEDS ORDERED: PANTOprazole 40 MG TAB PO SCH (09:00)
[2021-01-05] MEDS ORDERED: dexAMETHasone 20 MG in SYRINGE 0 ML IV SCH (10:10)
[2021-01-05] MEDS ORDERED: DEXAMETHASONE IV ONE ×2 (10:10→10:30)
[2021-01-05] MEDS ORDERED: DEXTROSE 5% IV ONE (10:30)
--- NOTE | 2021-01-05 10:30 | Critical Care Consultation ---
Date of Consultation January 05, 2021 Assessment & Plan (1) Acute respiratory failure with hypoxia: Chest x-ray 01/05/2021 personally reviewed: Portable film, poor inspiratory effort, bilateral diffuse opacities are appreciated. Retrocardiac opacity also appreciated. --Acute hypoxic respiratory failure Secondary to multilobar pneumonia from COVID-19 COVID-19 positive on 12/23/2020 CRP 12.1 Positive lymphopenia Not a candidate for remdesivir. On dexamethasone. Continue with O2 supplementation to keep oxygen saturation greater than 90% BiPAP nightly and as needed shortness of breath. If possible can transition between high flow and BiPAP If there is any respiratory distress or clinical deterioration in his respiratory status intubation will be the next day. I did explain to the patient the importance of lying on the side or prone to prevent the need for intubation in the future. Patient does state that anxiety is playing a role as well. Plan: Increase dexamethasone to 20 mg daily for 5 days followed by 10 mg for 5 days. Change protonix to 40 twice daily Monitor CRP. Patient already has incentive spirometry. Importance of using it explained with the patient. I will add guaifenesin and flutter valve. Give the patient euvolemic to negative balance. Pulmonary will continue to follow. I have personally spent 38 minutes of critical care time in the direct management of this patient. This is a life/limb threatening event. This includes time spent evaluating patient, direct bedside care, chart review, placing orders, interpretation of diagnostic studies, discussion with consultants, patient, and family members, as well as other required patient management activities. This time is exclusive of all separately billable procedures, and teaching time and separate from and in addition to any other critical care service time. Please note the above document was generated using voice recognition software. It may contain grammatical, syntax or spelling errors. (2) Pneumonia due to severe acute respiratory syndrome coronavirus 2 (SARS-CoV-2): (3) COVID-19: History of Present Illness Attending Physician: Cathleen Chou MD History of Present Illness 55-year-old male history of depression and anxiety was admitted to the hospital on 01/01/2021 for hypoxia and with COVID-19 pneumonia Patient was on the floor on 100% FiO2, 40 L high flow was in respiratory distress. ICU was called for that reason. At the time of examination patient was on BiPAP 12/6 65% saturating 94%. He was breathing in mid 20s. Not in any acute distress. Talking in full sentences. He was actively working on his laptop as well as watching TV. He denied any chest pain. He denied any significant cough. He says that he feels way better on BiPAP that he used to do on high flow. Denies any headache, no nausea or vomiting. When he does cough he has a feeling that he not able to bring up any phlegm. Social history: Patient is a non-smoker, denies any illicit drug use. No alcohol use. Allergies Allergy/AdvReac Type Severity Reaction Status Date / Time No Known Drug Allergies Allergy Unknown Verified 01/01/21 00:25 Home Medications Medication Instructions Recorded Confirmed Type lansoprazole 15 mg capsule,delayed 15 mg PO DAILY PRN cap 08/22/19 01/01/21 History release fluoxetine 20 mg capsule 20 mg PO DAILY #90 cap 08/26/20 01/01/21 Rx hydroxyzine HCl 50 mg tablet 50 mg PO BID PRN #180 tab 09/03/20 01/01/21 Rx allopurinol 100 mg tablet 100 mg PO DAILY #30 tab 12/15/20 01/01/21 Rx colchicine 0.6 mg tablet 0.6 mg PO .COMPLEX #3 tab 12/16/20 01/01/21 Rx fluticasone 100 mcg-salmeterol 50 1 inh INHALATION BID #60 ea 12/28/20 01/01/21 Rx mcg/dose blistr powdr for inhalation benzonatate 200 mg capsule 200 mg PO TID PRN #30 cap 12/29/20 01/01/21 Rx prednisone 20 mg tablet 20 mg PO DAILY #18 tab 12/29/20 01/01/21 Rx promethazine-DM 6.25 mg-15 mg/5 mL 5 ml PO Q6H PRN #473 ml 12/31/20 01/01/21 Rx oral syrup Patient History Medical History (Updated 01/02/21 @ 11:24 by Kingsley Beck DO) Depression with anxiety Dyslipidemia GERD without esophagitis Surgical History H/O colonoscopy H/O inguinal hernia repair H/O knee surgery left Knee ACL H/O sinus surgery H/O: hemorrhoidectomy History of vasectomy Family History Grandmother Breast cancer Brother Skin cancer Other Allergies Cancer Denies family history of Ovarian cancer Prostate cancer Diabetes Heart disease Myocardial infarction Colorectal cancer Lung disease Asthma Social History Smoking Status: Never smoker Hx Alcohol Use: Yes Alcohol type: beer and wine Hx Substance Use: No Preferred Language: Uzbek Communication Ability: Effective Visual Impairment: No Limitations Hearing Ability: Normal Evaporator Helper Required: No Beliefs That Will Affect Care: None marital status: Current Living Situation: Spouse current occupational status: employed 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 Feels Safe at Home: Yes Childhood Exposure to Second-Hand Smoke: No Dental Care, Regularly: Yes Physical Activity Frequency: 3-4 Times per Week Seatbelt Use: always Sunscreen Use: Yes Assistive Devices: Oxygen - Continuous Review of Systems Review of Systems: All systems reviewed & are unremarkable except as noted in HPI & below Physical Exam Physical Exam: Constitutional: No acute distress HEENT: EOMI, PERRLA Respiratory system: Decreased air entry bilaterally, no wheeze, no, positive crackles bilaterally CVS: S1-S2 positive, no murmurs or gallops Abdomen: Soft, nontender, nondistended, positive bowel sounds x4 Extremities: +2 pulses bilaterally radialis/ dorsalis pedis, no cyanosis, no edema Neuro: Awake alert oriented x3 Psych: Normal mood and affect G/U: No Rich Skin: no rashes, warm and dry Lymphatic: no cervical or axillary lymphadenopathy Results & Data Results & Data ([facility]) Vital Signs (Past 12 Hours) Vital Signs Temp Pulse Pulse Resp BP BP Pulse Ox 01/05/21 08:35 77 27 H 93 01/05/21 07:37 36.5 C 86 18 169/62 H 90 01/05/21 07:31 77 01/05/21 07:27 82 25 H 89 L 01/05/21 03:21 72 34 H 90 01/05/21 02:44 36.9 C 78 18 116/66 92 01/05/21 02:16 71 01/04/21 22:46 36.6 C 70 28 H 135/78 88 L 01/04/21 07:00 01/04/21 07:00 Coding Level of Care Code Critical Care 1st 30-74 mins Diagnoses Acute respiratory failure with hypoxia J96.01 Pneumonia due to severe acute respiratory syndrome coronavirus 2 (SARS-CoV-2) U07.1; J12.82 COVID-19 U07.1 Time Spent (min) 38
--- NOTE | 2021-01-05 19:10 | Hospitalist Progress Note ---
Date of Service January 05, 2021 Assessment & Plan (1) Acute respiratory failure with hypoxia: due to COVID 19 pneumonia, worsening resp distress today and POx mid 80s on max HFNC settings with some tachypnea CXR slightly worse infiltrates on left -converted to alternating BiPAP and HFNC and much improved -appreciate PULM/CCM consult -continue prooning intermittently -continue dexamethasone but increased to 20mg IV daily x 5 days and then 10mg daily x 5 days as per PULM -continue albuterol prn -continue flutter valve 3 times daily, incentive spirometry -Follow chest x-ray if worsening and eventually to resolution (2) COVID-19: Severe Covid-19. Hypoxia with saturation of 78% on room air on arrival. -with fever again on 01/04 but none since On admission, labs with lymphopenia, mild hyponatremia with Ji=387 and mild elevation of liver enzymes - AST=86, ALT=79. CXR with bilateral airspace disease. continue dexamethasone and converting to high dose regimen as above -not candidate for Remedsevir or plasma as outside window -continue Budesonide nebulizer daily eating and drinking well - robitussin w/ codeine or tessalon perles for cough (3) Depression with anxiety: Chronic -Continue Fluoxetine -Continue Hydroxyzine 50mg po BID as needed for anxiety -added melatonin prn sleep (4) GERD without esophagitis: -change pepcid to Protonix bid for GERD especially while on steroids (5) Hyperuricemia: Chronic. Stable -Continue Allopurinol 100mg po daily Ppx - Lovenox 40 BID Code - Full per discussion with patient Dispo - continued stay on PCU Admission and Anticipated Discharge Date Admission Date: January 01, 2021 Subjective This AM I was contacted by RT and RN to say that pt was satting in the mid 80s on FiO2 100% on 40L HFNC. He was converted to BiPAP and felt much improved when I saw him. He actually quite prefers the BiPAP to the HFNC and feels hopeful it will help him get better. His oxygenation also is greatly improved on it. He is proning intermittently. Ate a late breakfast when was able to come off the BiPAP. He denies any other problems. Tele with NSR, PVCs, rates 60-80s Review of Systems Review of Systems: All systems reviewed & are unremarkable except as noted in HPI & below Physical Exam Constitutional: WD/WN, vitals as above Eyes: + anicteric sclerae Neck: trachea midline, no thyromegaly Respiratory: normal respiratory effort Auscultation: no diminished lung sounds (much improved air flow throughout), no crackles, no rhonchi and no wheezes Cardiovascular: RRR, no murmur, no edema Extremities: no calf tenderness Chest (Breasts): Chest: normal inspection of chest Gastrointestinal (Abdomen): normal bowel sounds, soft, nontender, no hepatosplenomegaly Musculoskeletal: Extremities: extremities normal to inspection; no cyanosis and no clubbing Skin: no rashes, warm and dry Neurologic: moves all extremities and awake; no focal motor deficits Psychiatric: Orientation: alert and oriented x 3 Speech: normal rate/rhythm/volume of speech Affect: + flat affect Lymphatic: no lymphedema Results & Data Results & Data ([facility]) Vital Signs (Past 12 Hours) Vital Signs Temp Pulse Pulse Resp BP BP Pulse Ox 01/05/21 15:44 36.6 C 74 20 107/66 93 01/05/21 15:10 72 26 H 93 01/05/21 15:08 71 28 H 88 L 01/05/21 15:01 78 01/05/21 15:00 01/05/21 11:33 36.4 C L 74 18 110/67 92 01/05/21 11:17 70 28 H 90 01/05/21 08:40 01/05/21 08:35 77 27 H 93 01/05/21 07:37 36.5 C 86 18 169/62 H 90 01/05/21 07:31 77 01/05/21 07:27 82 25 H 89 L Pulse Ox 01/05/21 15:44 01/05/21 15:10 01/05/21 15:08 01/05/21 15:01 01/05/21 15:00 95 01/05/21 11:33 01/05/21 11:17 01/05/21 08:40 84 L 01/05/21 08:35 01/05/21 07:37 01/05/21 07:31 01/05/21 07:27 PG Care Time/CCT Total # of Minutes Spent Total Time Spent with Patient: Total time spent is greater than 50% in coordination of care (as documented) at patient's floor/unit and/or counseling patient: Coding Level of Care Code 35590 Subseq Hosp Care Lvl 3 Diagnoses Acute respiratory failure with hypoxia J96.01 COVID-19 U07.1 Depression with anxiety F41.8 GERD without esophagitis K21.9 Hyperuricemia E79.0
[2021-01-05] MEDS: PANTOprazole 40 MG TAB PO SCH (21:52)
[2021-01-05] MEDS: guaiFENesin 600 MG TABCR PO SCH (21:52)
[2021-01-06] MEDS: BUDESONIDE 0.25 MG/2 ML VIAL (PULMICORT) NEB SCH (07:21)
[2021-01-06] MEDS: guaiFENesin 600 MG TABCR PO SCH ×2 (08:57→21:40)
[2021-01-06] MEDS: PANTOprazole 40 MG TAB PO SCH ×2 (08:57→21:40)
[2021-01-06] MEDS: FLUoxetine HCL 20 MG CAP PO SCH ×2 (08:57→22:05)
[2021-01-06] MEDS: allopurinoL 100 MG TAB PO SCH (08:57)
[2021-01-06] MEDS: ENOXAPARIN INJ 40 MG/0.4 ML SYR SQ SCH ×2 (08:58→21:39)
[2021-01-06 09:23] LABS: Basophils # (auto) 0.01 K/uL (0-0.2); Basophils % (auto) 0.1 %; Eosinophils # (auto) 0.02 K/uL (0-0.5); Eosinophils % (auto) 0.2 %; Hematocrit (blood only) 36.6 % (42-52); Hemoglobin 13.3 g/dL (14.0-18.0); Immature Granulocytes # (auto) 0.22 K/uL (0.00-0.02); Immature Granulocytes % (auto) 1.9 %; Lymphocytes % (auto) 6.1 %; Mean Corpuscular Hemoglobin 29.6 pg (25-34); Mean Corpuscular Hgb Conc 36.3 g/dL (32-36); Mean Corpuscular Volume 81.5 fL (80-100); Mean Platelet Volume 9.6 fL (7.4-10.4); Monocytes # (auto) 0.39 K/uL (0.11-0.59); Monocytes % (auto) 3.4 %; Neutrophils # (auto) 10.07 K/uL (1.4-6.5); Neutrophils % (auto) 88.3 %; Platelet Count 295 K/uL (130-400); RDW Coefficient of Variation 11.6 % (11.5-14.5); RDW Standard Deviation 34.4 fL (36.4-46.3); Red Blood Count 4.49 M/uL (4.7-6.1); White Blood Count 11.41 K/uL (4.8-10.8)
[2021-01-06 09:56] LABS: Albumin Level 2.2 gm/dl (3.4-5.0); BUN Creatinine Ratio 28.3 (10-20); C Reactive Protein 10.9 mg/dl (0-0.29); Calcium 8.6 mg/dl (8.5-10.1); Creatinine Clr Calc Pharmacy 147.3 ml/min; Est GFR (African American) 123.9; Est GFR (Non-African American) 106.9; Potassium 4.1 mmol/L (3.5-5.1)
[2021-01-06 10:11] LABS: Albumin Globulin Ratio 0.5 (0.9-2); Bilirubin,Total 0.5 mg/dl (0.2-1); Globulin 4.2 gm/dl (2.5-4.0); Total Protein 6.4 gm/dl (6.4-8.2)
[2021-01-06] MEDS: dexAMETHasone 20 MG in DEXTROSE 5% 25 ML IV SCH (11:05)
[2021-01-06] MEDS: hydrOXYzine HCl 25 MG TAB PO SCH ×2 (12:04→21:40)
--- NOTE | 2021-01-06 15:03 | Pulmonology Progress Note ---
Date of Service January 06, 2021 Assessment & Plan (1) Acute respiratory failure with hypoxia: Chest x-ray 01/05/2021 reviewed: IMPRESSION: Progression of bilateral airspace opacities, greater within the left lung. The findings represent multifocal pneumonia. 1. Acute hypoxic respiratory failure Secondary to multilobar pneumonia from COVID-19 COVID-19 positive on 12/23/2020 CRP 12.1 Calcitonin 0.08. No need to follow as the patient has no fever and no increased sputum production. Patient falls outside of the window for effective treatment with remdesivir. Dexamethasone increased to 20 mg IV daily. This should be the dose for five days and then decrease to 10mg for 5 days Continue with O2 supplementation to keep oxygen saturation greater than 90% BiPAP nightly and as needed for shortness of breath and during the day. Patient prefers BiPAP over HFNC Patient encouraged to lay on his side or are prone on his belly with sleep. He states that he has a longstanding back injury and is unable to lay on his belly. Continue incentive spirometry and flutter valve. Continue Mucinex Patient has no acute respiratory distress at the time of my visit. He is slightly tachypneic with a respiratory rate in the mid 20s. No indication at this time for endotracheal intubation with mechanical ventilation. Continue supportive care. Thank you for including us in the care of this patient. We will continue to follow along for now. (2) Pneumonia due to severe acute respiratory syndrome coronavirus 2 (SARS-CoV-2): (3) COVID-19: Admission and Anticipated Discharge Date Admission Date: January 01, 2021 Supervising Physician Co-Signing Physician Notes I saw and evaluated the patient with Davie cowart, and agree with findings and plan as documented in the note. Patient seen and examined at bedside. No acute distress. Patient was on BiPAP 12/6 60% saturating 94%. He was breathing in the low to mid 20s. Patient denies any significant cough. No hemoptysis. States that he is the same. Prefers BiPAP more than high flow. Would continue interchanging between high flow and BiPAP. Keep O2 saturation greater than 88%. Incentive spirometry. Please note the above document was generated using voice recognition software. It may contain grammatical, syntax or spelling errors.Any formal questions or concerns about the content, text or information contained within the body of this dictation should be directly addressed to the provider for clarification. Subjective Attending: Dr. Jones Patient seen and examined at bedside in room 219 in the COVID-19 unit. Patient is in no respiratory distress. He is sitting up in bed and appears comfortable. Has high flow nasal cannula in place. Is currently saturating 89% on rest at 40 L/min. He denies fever chills. He has no myalgias. He denies headache. He has no gastrointestinal discomfort or diarrhea. He has no significant cough or sputum production. Aside from hypoxia, he has no complaints. Review of Systems Review of Systems: All systems reviewed & are unremarkable except as noted in Subjective Physical Exam Physical Exam: GENERAL : No acute distress EYES: No icterus, gaze conjugate NOSE: No evidence of epistaxis. High flow nasal cannula is in place MOUTH: No lesions or candidiasis. Mucosa is moist. No deviation of tongue. NECK: Supple. No stridor. LUNGS: No wheezes, rales. Good inspirational effort. There is congestion at the bilateral lower bases. No induced cough with deep inspiration HEART: Regular, rate controlled at 68 bpm ABDOMEN: Soft, NT, ND, BS Present EXTREMITIES: No LE edema, pedal pulses intact NEURO: A&OX3 Results & Data Results & Data ([facility]) Vital Signs (Past 12 Hours) Vital Signs Temp Pulse Pulse Resp BP BP Pulse Ox 01/06/21 14:26 77 28 H 88 L 01/06/21 12:47 36.7 C 73 22 110/70 91 01/06/21 11:43 74 26 H 88 L 01/06/21 08:09 36.4 C L 56 L 20 113/72 87 L 01/06/21 07:24 52 L 01/06/21 07:20 68 23 88 L 01/06/21 07:19 66 23 88 L 01/06/21 05:08 36.5 C 53 L 20 98/53 L 90 01/06/21 03:56 51 L 26 H 95 Laboratory Results 01/06/21 08:55 01/06/21 08:55 Diagnostic Findings XR chest 1V portable CLINICAL HISTORY: Follow-up COVID Pneumonia COMPARISON STUDY: Chest radiograph January 01, 2021. FINDINGS: Lung volumes are normal. There is no pneumothorax or pleural effusion. Cardiomegaly is unchanged. Left lung airspace opacity has increased. Right lung airspace opacities are similar to prior exam. IMPRESSION: Progression of bilateral airspace opacities, greater within the left lung. The findings represent multifocal pneumonia. Electronically signed by: Jh Hodge M.D. 01/05/2021 8:40 AM PG Care Time/CCT Total # of Minutes Spent Total Time Spent with Patient: Total time spent is greater than 50% in coordination of care (as documented) at patient's floor/unit and/or counseling patient:25 including discussion regarding pathophysiology of Covid and inflammatory disease in the lungs. Coding Level of Care Code 94181 Subseq Hosp Care Lvl 2 Diagnoses Acute respiratory failure with hypoxia J96.01 Pneumonia due to severe acute respiratory syndrome coronavirus 2 (SARS-CoV-2) U07.1; J12.82 COVID-19 U07.1 Time Spent (min) 25
--- NOTE | 2021-01-06 16:06 | Hospitalist Progress Note ---
Date of Service January 06, 2021 Assessment & Plan (1) Acute respiratory failure with hypoxia: due to COVID 19 pneumonia, worsening resp distress on 01/05 and POx mid 80s on max HFNC settings with some tachypnea Was placed on BiPAP 09/19 and alternates between BiPAP and high flow nasal cannula, BiPAP to be used at bedtime CXR slightly worse infiltrates on left -appreciate PULM/CCM consult -continue proning intermittently -continue dexamethasone high-dose regimen 20mg IV daily x 5 days and then 10mg daily x 5 days as per PULM -continue albuterol prn -continue flutter valve 3 times daily, incentive spirometry -Follow chest x-ray if worsening and eventually to resolution (2) COVID-19: Severe Covid-19. Hypoxia with saturation of 78% on room air on arrival. -with fever again on 01/04 but none since On admission, labs with lymphopenia, mild hyponatremia with Hm=307 and mild elevation of liver enzymes - AST=86, ALT=79. CXR with bilateral airspace disease. continue dexamethasone and converted to high dose regimen as above -not candidate for Remedsevir or plasma as outside window -continue Budesonide nebulizer daily eating and drinking well - robitussin w/ codeine or tessalon perles for cough (3) Depression with anxiety: Chronic -Continue Fluoxetine -Continue Hydroxyzine 50mg po BID but changed from as needed to scheduled as per his request -added melatonin prn sleep (4) GERD without esophagitis: -change pepcid to Protonix bid for GERD especially while on steroids (5) Hyperuricemia: Chronic. Stable -Continue Allopurinol 100mg po daily Ppx - Lovenox 40 BID Code - Full per discussion with patient Dispo - continued stay on PCU Updated his by phone on 01/06 Admission and Anticipated Discharge Date Admission Date: January 01, 2021 Subjective Patient was on BiPAP through the night and high flow nasal cannula during the day on max FiO2. He does feel better but was feeling anxious, took his hydroxyzine. Is eating and drinking, no other concerns. Telemetry with sinus bradycardia with rates in the 50s to 60s. Review of Systems Review of Systems: All systems reviewed & are unremarkable except as noted in HPI & below Physical Exam Constitutional: WD/WN, vitals as above Eyes: + anicteric sclerae Neck: trachea midline, no thyromegaly Respiratory: normal respiratory effort Auscultation: + diminished lung sounds (Moderate throughout) and + crackles (Bilateral lower and middle lung dunlap); no rhonchi and no wheezes Cardiovascular: RRR, no murmur, no edema Extremities: no calf tenderness Chest (Breasts): Chest: normal inspection of chest Gastrointestinal (Abdomen): normal bowel sounds, soft, nontender, no hepatosplenomegaly Musculoskeletal: Extremities: extremities normal to inspection; no cyanosis and no clubbing Skin: no rashes, warm and dry Neurologic: moves all extremities and awake; no focal motor deficits Psychiatric: Orientation: alert and oriented x 3 Speech: normal rate/rhythm/volume of speech Affect: + flat affect Lymphatic: no lymphedema Results & Data Results & Data ([facility]) Vital Signs (Past 12 Hours) Vital Signs Temp Pulse Pulse Resp BP BP Pulse Ox 01/06/21 15:33 59 L 01/06/21 15:00 01/06/21 14:26 77 28 H 88 L 01/06/21 12:47 36.7 C 73 22 110/70 91 01/06/21 11:43 74 26 H 88 L 01/06/21 08:09 36.4 C L 56 L 20 113/72 87 L 01/06/21 07:24 52 L 01/06/21 07:20 68 23 88 L 01/06/21 07:19 66 23 88 L 01/06/21 05:08 36.5 C 53 L 20 98/53 L 90 Pulse Ox 01/06/21 15:33 01/06/21 15:00 91 01/06/21 14:26 01/06/21 12:47 01/06/21 11:43 01/06/21 08:09 01/06/21 07:24 01/06/21 07:20 01/06/21 07:19 01/06/21 05:08 Laboratory Results 01/06/21 01/06/21 Range/Units 08:55 08:55 WBC 11.41 H (4.8-10.8) K/uL RBC 4.49 L (4.7-6.1) M/uL Hgb 13.3 L (14.0-18.0) g/dL Hct 36.6 L (42-52) % MCV 81.5 (80-100) fL MCH 29.6 (25-34) pg MCHC 36.3 H (32-36) g/dL RDW Std Deviation 34.4 L (36.4-46.3) fL RDW Coeff of Stephanie 11.6 (11.5-14.5) % Plt Count 295 (130-400) K/uL MPV 9.6 (7.4-10.4) fL Immature Gran % (Auto) 1.9 % Neut % (Auto) 88.3 % Lymph % (Auto) 6.1 % Winkler % (Auto) 3.4 % Eos % (Auto) 0.2 % Baso % (Auto) 0.1 % Neut # (Auto) 10.07 H (1.4-6.5) K/uL Lymph # (Auto) 0.70 L (1.2-3.4) K/uL Winkler # (Auto) 0.39 (0.11-0.59) K/uL Eos # (Auto) 0.02 (0-0.5) K/uL Baso # (Auto) 0.01 (0-0.2) K/uL Immature Gran # (Auto) 0.22 H (0.00-0.02) K/uL Sodium 136 (136-145) mmol/L Potassium 4.1 (3.5-5.1) mmol/L Chloride 105 (98-107) mmol/L Carbon Dioxide 26 (21-32) mmol/L Anion Gap 5.0 (3-11) BUN 20 H (7-18) mg/dl Creatinine 0.69 (0.6-1.4) mg/dl Est Cr Clr Drug Dosing 147.3 ml/min Est GFR ( Amer) 123.9 Est GFR (Non-Af Amer) 106.9 BUN/Creatinine Ratio 28.3 H (10-20) Glucose 125 H (70-99) mg/dl Calcium 8.6 (8.5-10.1) mg/dl Total Bilirubin 0.5 (0.2-1) mg/dl AST 35 (15-37) U/L ALT 69 (12-78) U/L Alkaline Phosphatase 134 H (45-117) U/L C-Reactive Protein 10.90 H (0-0.29) mg/dl NT-Pro-B Natriuret Pep 171 (0-900) pg/ml Total Protein 6.4 (6.4-8.2) gm/dl Albumin 2.2 L (3.4-5.0) gm/dl Globulin 4.2 H (2.5-4.0) gm/dl Albumin/Globulin Ratio 0.5 L (0.9-2) PG Care Time/CCT Total # of Minutes Spent Total Time Spent with Patient: Total time spent is greater than 50% in coordination of care (as documented) at patient's floor/unit and/or counseling patient: Coding Level of Care Code 21881 Subseq Hosp Care Lvl 3 Diagnoses Acute respiratory failure with hypoxia J96.01 COVID-19 U07.1 Depression with anxiety F41.8 GERD without esophagitis K21.9 Hyperuricemia E79.0
[2021-01-07] MEDS: BUDESONIDE 0.25 MG/2 ML VIAL (PULMICORT) NEB SCH (07:58)
[2021-01-07] MEDS: ENOXAPARIN INJ 40 MG/0.4 ML SYR SQ SCH ×2 (08:32→20:58)
[2021-01-07] MEDS: guaiFENesin 600 MG TABCR PO SCH ×2 (08:33→20:59)
[2021-01-07] MEDS: allopurinoL 100 MG TAB PO SCH (08:33)
[2021-01-07] MEDS: PANTOprazole 40 MG TAB PO SCH ×2 (08:34→20:59)
[2021-01-07] MEDS: hydrOXYzine HCl 25 MG TAB PO SCH ×2 (08:35→21:00)
[2021-01-07] MEDS: dexAMETHasone 20 MG in DEXTROSE 5% 25 ML IV SCH (10:10)
--- NOTE | 2021-01-07 11:17 | Pulmonology Progress Note ---
Date of Service January 07, 2021 Assessment & Plan (1) Acute respiratory failure with hypoxia: Chest x-ray 01/05/2021 personally reviewed: Portable film, poor inspiratory effort, bilateral diffuse opacities are appreciated. Retrocardiac opacity also appreciated. --Acute hypoxic respiratory failure Secondary to multilobar pneumonia from COVID-19 COVID-19 positive on 12/23/2020 CRP 12.1 --> 10.9 Positive lymphopenia Not a candidate for remdesivir. Dexamethasone increased to 20 mg IV daily. This should be the dose for five days and then decrease to 10mg for 5 days Continue with PPI twice daily Continue with O2 supplementation to keep oxygen saturation greater than 90% BiPAP nightly and as needed shortness of breath. Transition between high flow and BiPAP Patient does state that anxiety is playing a role as well. Patient encouraged to lay on his side or are prone on his belly with sleep. He states that he has a longstanding back injury and is unable to lay on his belly. Continue incentive spirometry and flutter valve. Continue Mucinex Plan: Keep the patient euvolemic to negative balance. Patient using incentive spirometry as well as flutter valve. Encouraged to continue with the same. CRP is trending down gradually. Follow the trend. Please note the above document was generated using voice recognition software. It may contain grammatical, syntax or spelling errors.Any formal questions or concerns about the content, text or information contained within the body of this dictation should be directly addressed to the provider for clarification. (2) Pneumonia due to severe acute respiratory syndrome coronavirus 2 (SARS-CoV-2): (3) COVID-19: Admission and Anticipated Discharge Date Admission Date: January 01, 2021 Subjective Patient seen and examined at bedside. No acute distress, no adverse events overnight. Patient was on BiPAP / 60% saturating 94% at the time of examination Patient states that he is feeling better compared to 2 days ago. Cough is decreased in intensity. He uses high flow during the day and then BiPAP on an as-needed basis and at night. Patient still feels better on BiPAP. Denies any headache, no chest pain, no nausea, no vomiting. Tolerating diet. Review of Systems Review of Systems: All systems reviewed & are unremarkable except as noted in Subjective Physical Exam Physical Exam: Constitutional: No acute distress HEENT: EOMI, PERRLA Respiratory system: Decreased air entry bilaterally, no wheeze, no, positive crackles bilaterally CVS: S1-S2 positive, no murmurs or gallops Abdomen: Soft, nontender, nondistended, positive bowel sounds x4 Extremities: +2 pulses bilaterally radialis/ dorsalis pedis, no cyanosis, no edema Neuro: Awake alert oriented x3 Psych: Normal mood and affect G/U: No Rich Skin: no rashes, warm and dry Lymphatic: no cervical or axillary lymphadenopathy Results & Data Results & Data ([facility]) Vital Signs (Past 12 Hours) Vital Signs Temp Pulse Pulse Pulse Resp BP BP 01/07/21 08:45 36.9 C 56 L 20 118/76 01/07/21 08:04 56 L 01/07/21 08:01 58 L 25 H 01/07/21 04:14 58 L 26 H 01/07/21 03:59 37.0 C 63 23 111/70 01/07/21 00:12 81 24 01/07/21 00:07 69 01/06/21 23:16 36.8 C 61 17 122/83 Pulse Ox 01/07/21 08:45 90 01/07/21 08:04 01/07/21 08:01 92 01/07/21 04:14 92 01/07/21 03:59 93 01/07/21 00:12 91 01/07/21 00:07 01/06/21 23:16 93 01/06/21 08:55 01/06/21 08:55 PG Care Time/CCT Total # of Minutes Spent Total Time Spent with Patient: Total time spent is greater than 50% in coordination of care (as documented) at patient's floor/unit and/or counseling patient: Coding Level of Care Code 51225 Subseq Hosp Care Lvl 3 Diagnoses Acute respiratory failure with hypoxia J96.01 Pneumonia due to severe acute respiratory syndrome coronavirus 2 (SARS-CoV-2) U07.1; J12.82 COVID-19 U07.1
--- NOTE | 2021-01-07 16:24 | Hospitalist Progress Note ---
Date of Service January 07, 2021 Assessment & Plan (1) Acute respiratory failure with hypoxia: due to COVID 19 pneumonia, worsening resp distress on 01/05 and POx mid 80s on max HFNC settings with some tachypnea Was placed on BiPAP 09/19 and alternates between BiPAP and high flow nasal cannula, BiPAP to be used at bedtime Now improved on 01/07, HFNC is being weaned--> down to 35L and 75% FiO2 with POx 90-92%, not SOB, is OOB to chair Wearing BiPAP qhs CXR slightly worse infiltrates on left on 01/05 CRP trending downward -appreciate PULM/CCM consult -continue proning intermittently -continue dexamethasone high-dose regimen 20mg IV daily x 5 days and then 10mg daily x 5 days as per PULM-wean down to 10mg dose on 01/10 -continue albuterol prn -continue flutter valve 3 times daily, incentive spirometry -Follow chest x-ray if worsening and eventually to resolution (2) COVID-19: Severe Covid-19. Hypoxia with saturation of 78% on room air on arrival. -with fever again on 01/04 but none since On admission, labs with lymphopenia, mild hyponatremia with Hu=075 and mild elevation of liver enzymes - AST=86, ALT=79. CXR with bilateral airspace disease. continue dexamethasone and converted to high dose regimen as above -not candidate for Remedsevir or plasma as outside window -continue Budesonide nebulizer daily eating and drinking well - robitussin w/ codeine or tessalon perles for cough Finally starting to improve (3) Depression with anxiety: Chronic -Continue Fluoxetine -Continue Hydroxyzine 50mg po BID but changed from as needed to scheduled as per his request -added melatonin prn sleep (4) GERD without esophagitis: -continue Protonix bid for GERD especially while on steroids (5) Back pain: mid back pain, MSK in nature -add voltaren gel -tylenol prn (6) Hyperuricemia: Chronic. Stable -Continue Allopurinol 100mg po daily Ppx - Lovenox 40 BID Code - Full per discussion with patient Dispo - continued stay on PCU Updated his by phone on 01/06 Admission and Anticipated Discharge Date Admission Date: January 01, 2021 Subjective Pt feels better today. Not SOB. Is just weaned down to 35L and 75% HFNC, POx 90- 92%, less cough. Wore BiPAP through enight and did well. Is eating and drinking a lot Has some muscular pain on either side of spine in mid back from beds. Also complaints of it being hot despite the temp in room being all the way down. Tele with NSR Review of Systems Review of Systems: All systems reviewed & are unremarkable except as noted in HPI & below Physical Exam Constitutional: WD/WN, vitals as above Eyes: + anicteric sclerae Neck: trachea midline, no thyromegaly Respiratory: normal respiratory effort Auscultation: + crackles (Bilateral lower and middle lung dunlap); no diminished lung sounds (moving air much better today), no rhonchi and no wheezes Cardiovascular: RRR, no murmur, no edema Extremities: no calf tenderness Chest (Breasts): Chest: normal inspection of chest Gastrointestinal (Abdomen): normal bowel sounds, soft, nontender, no hepatosplenomegaly Musculoskeletal: Extremities: extremities normal to inspection; no cyanosis and no clubbing +TTTP over paraspinous muscles thoracic spine, no masses Skin: no rashes, warm and dry Neurologic: moves all extremities and awake; no focal motor deficits Psychiatric: A+Ox3, euthymic affect Speech: normal rate/rhythm/volume of speech Lymphatic: no lymphedema Results & Data Results & Data ([facility]) Vital Signs (Past 12 Hours) Vital Signs Temp Pulse Pulse Resp BP Pulse Ox 01/07/21 15:58 77 20 92 01/07/21 15:35 36.6 C 78 21 103/65 91 01/07/21 12:25 36.6 C 68 20 115/72 93 01/07/21 11:30 80 20 91 01/07/21 08:45 36.9 C 56 L 20 118/76 90 01/07/21 08:04 56 L 01/07/21 08:01 58 L 25 H 92 PG Care Time/CCT Total # of Minutes Spent Total Time Spent with Patient: Total time spent is greater than 50% in coordination of care (as documented) at patient's floor/unit and/or counseling patient: Coding Level of Care Code 30174 Subseq Hosp Care Lvl 2 Diagnoses Acute respiratory failure with hypoxia J96.01 COVID-19 U07.1 Depression with anxiety F41.8 GERD without esophagitis K21.9 Back pain M54.9 Hyperuricemia E79.0
[2021-01-07] MEDS: DICLOFENAC SOD 1% GEL 100 GM TUBE EXT SCH ×2 (17:33→21:01)
[2021-01-07] MEDS: FLUoxetine HCL 20 MG CAP PO SCH (20:59)
[2021-01-08 07:19] LABS: Basophils # (auto) 0.01 K/uL (0-0.2); Basophils % (auto) 0.1 %; Eosinophils # (auto) 0.12 K/uL (0-0.5); Eosinophils % (auto) 1.2 %; Hematocrit (blood only) 36.1 % (42-52); Hemoglobin 13.2 g/dL (14.0-18.0); Immature Granulocytes # (auto) 0.21 K/uL (0.00-0.02); Immature Granulocytes % (auto) 2.2 %; Lymphocytes % (auto) 12.5 %; Mean Corpuscular Hemoglobin 30.1 pg (25-34); Mean Corpuscular Hgb Conc 36.6 g/dL (32-36); Mean Corpuscular Volume 82.4 fL (80-100); Mean Platelet Volume 9.7 fL (7.4-10.4); Monocytes # (auto) 0.49 K/uL (0.11-0.59); Monocytes % (auto) 5.1 %; Neutrophils # (auto) 7.58 K/uL (1.4-6.5); Neutrophils % (auto) 78.9 %; Platelet Count 267 K/uL (130-400); RDW Coefficient of Variation 11.7 % (11.5-14.5); RDW Standard Deviation 35.3 fL (36.4-46.3); Red Blood Count 4.38 M/uL (4.7-6.1); White Blood Count 9.61 K/uL (4.8-10.8)
[2021-01-08 08:08] LABS: Albumin Level 2.3 gm/dl (3.4-5.0); BUN Creatinine Ratio 33.2 (10-20); C Reactive Protein 3.04 mg/dl (0-0.29); Creatinine Clr Calc Pharmacy 135.5 ml/min; Est GFR (African American) 119.7; Est GFR (Non-African American) 103.3; Magnesium 2.3 mg/dl (1.8-2.4); Potassium 4.1 mmol/L (3.5-5.1)
[2021-01-08 08:11] LABS: Albumin Globulin Ratio 0.6 (0.9-2); Bilirubin,Total 0.4 mg/dl (0.2-1); Globulin 3.6 gm/dl (2.5-4.0); Total Protein 5.9 gm/dl (6.4-8.2)
[2021-01-08] MEDS: ENOXAPARIN INJ 40 MG/0.4 ML SYR SQ SCH ×2 (09:04→20:08)
[2021-01-08] MEDS: allopurinoL 100 MG TAB PO SCH (09:05)
[2021-01-08] MEDS: hydrOXYzine HCl 25 MG TAB PO SCH ×2 (09:05→20:08)
[2021-01-08] MEDS: PANTOprazole 40 MG TAB PO SCH ×2 (09:05→20:08)
[2021-01-08] MEDS: DICLOFENAC SOD 1% GEL 100 GM TUBE EXT SCH ×4 (09:06→20:09)
[2021-01-08] MEDS: guaiFENesin 600 MG TABCR PO SCH ×2 (09:06→20:08)
--- NOTE | 2021-01-08 09:44 | XRay Report ---
XR chest 1V portable HISTORY: Follow-up pneumonia. Shortness of breath. COMPARISON: 01/05/2021. FINDINGS: Interval progression of the multifocal bilateral airspace opacities consistent with a pneum onia. No pneumothorax. No pleural effusions. The heart remains mildly enlarged. There are low lung vo lumes. IMPRESSION: Interval progression of the multifocal airspace opacities consistent with a pneumonia. ACT 112: Negative or not required by law. Electronically signed by: Abad Mo M.D. 01/08/2021 9:43 AM
[2021-01-08] MEDS: dexAMETHasone 20 MG in DEXTROSE 5% 25 ML IV SCH (09:57)
[2021-01-08] MEDS: BUDESONIDE 0.25 MG/2 ML VIAL (PULMICORT) NEB SCH (12:01)
--- NOTE | 2021-01-08 12:48 | Pulmonology Progress Note ---
Date of Service January 08, 2021 Assessment & Plan (1) Acute respiratory failure with hypoxia: Chest x-ray 01/05/2021 personally reviewed: Portable film, poor inspiratory effort, bilateral diffuse opacities are appreciated. Retrocardiac opacity also appreciated. --Acute hypoxic respiratory failure Secondary to multilobar pneumonia from COVID-19 COVID-19 positive on 12/23/2020 CRP 12.1 --> 10.9 --> 3.04 Positive lymphopenia Not a candidate for remdesivir. Dexamethasone increased to 20 mg IV daily. This should be the dose for five days and then decrease to 10mg for 5 days Continue with PPI twice daily Continue with O2 supplementation to keep oxygen saturation greater than 90% BiPAP nightly and as needed shortness of breath. Transition between high flow and BiPAP Patient encouraged to lay on his side or are prone on his belly with sleep. He states that he has a longstanding back injury and is unable to lay on his belly. Continue incentive spirometry and flutter valve. Continue Mucinex Plan: Chest x-ray from today does show more dense opacities. But clinically patient is improving. I ordered BNP to be added to the morning labs. If it is on the higher side a dose of Lasix could be thought of. CRP trending down. Go down on FiO2 on the high flow to as low as possible. Once you reach 40% can give a trial of nasal cannula. I would not go down on flow to less than 35%. Continue with incentive spirometry. Please note the above document was generated using voice recognition software. It may contain grammatical, syntax or spelling errors.Any formal questions or concerns about the content, text or information contained within the body of this dictation should be directly addressed to the provider for clarification. (2) Pneumonia due to severe acute respiratory syndrome coronavirus 2 (SARS-CoV- 2): (3) COVID-19: Admission and Anticipated Discharge Date Admission Date: January 01, 2021 Subjective Patient seen and examined at bedside. No acute distress, no adverse events overnight. Patient was on high flow 35 L, 65% at time of examination. He was saturating 96% at that time. I went down on FiO2 55%. Patient denies any chest pain, shortness of breath is improved as per him. Denies any nausea or vomiting. He does cough but is not bringing up any phlegm. Good appetite. Review of Systems Review of Systems: All systems reviewed & are unremarkable except as noted in Subjective Physical Exam Physical Exam: Constitutional: No acute distress HEENT: EOMI, PERRLA Respiratory system: Decreased air entry bilaterally, no wheeze, no, positive crackles bilaterally CVS: S1-S2 positive, no murmurs or gallops Abdomen: Soft, nontender, nondistended, positive bowel sounds x4 Extremities: +2 pulses bilaterally radialis/ dorsalis pedis, no cyanosis, no edema Neuro: Awake alert oriented x3 Psych: Normal mood and affect G/U: No Rich Skin: no rashes, warm and dry Lymphatic: no cervical or axillary lymphadenopathy Results & Data Results & Data ([facility]) Vital Signs (Past 12 Hours) Vital Signs Temp Pulse Pulse Resp BP BP Pulse Ox 01/08/21 12:29 86 20 95 01/08/21 12:01 36.8 C 85 22 101/61 93 01/08/21 08:37 76 20 95 01/08/21 07:53 51 L 01/08/21 07:50 36.7 C 62 20 97/60 L 93 01/08/21 04:00 36.8 C 67 23 124/77 96 01/08/21 02:55 76 24 91 01/08/21 06:42 01/08/21 06:42 PG Care Time/CCT Total # of Minutes Spent Total Time Spent with Patient: Total time spent is greater than 50% in coordination of care (as documented) at patient's floor/unit and/or counseling patient: Coding Level of Care Code 27861 Subseq Hosp Care Lvl 3 Diagnoses Acute respiratory failure with hypoxia J96.01 Pneumonia due to severe acute respiratory syndrome coronavirus 2 (SARS-CoV-2) U07.1; J12.82 COVID-19 U07.1
--- NOTE | 2021-01-08 19:31 | Hospitalist Progress Note ---
Date of Service January 08, 2021 Assessment & Plan (1) Acute respiratory failure with hypoxia: due to COVID 19 pneumonia, worsening resp distress on 01/05 and POx mid 80s on max HFNC settings with some tachypnea Was placed on BiPAP 09/19 and alternates between BiPAP and high flow nasal cannula, BiPAP to be used at bedtime Now continues to improve, HFNC is being weaned--> down to 30L and 50% FiO2 with POx 92-96%, not SOB, is OOB to chair frequently Continues to be wearing BiPAP qhs CXR slightly worse infiltrates on left on 01/05 Chest x-ray on 01/08 again with progressing consolidative opacities but clinically he is improving CRP trending downward to 3 from 15 initially -appreciate PULM/CCM consult -continue proning intermittently -continue dexamethasone high-dose regimen 20mg IV daily x 5 days and then 10mg daily x 5 days as per PULM-wean down to 10mg dose on 01/10 -continue albuterol prn -continue flutter valve 3 times daily, incentive spirometry -Follow chest x-ray if worsening and eventually to resolution as an outpatient -Would recommend follow-up with pulmonology in 1 month after discharge -Discontinue Pulmicort nebulizer -Check proBNP in the morning as per pulmonology and would give IV Lasix if it is elevated. His previous proBNP was normal. (2) COVID-19: Severe Covid-19. Hypoxia with saturation of 78% on room air on arrival. -with fever again on 01/04 but none since On admission, labs with lymphopenia, mild hyponatremia with Rv=011 and mild elevation of liver enzymes. CXR with bilateral airspace disease. -continue dexamethasone and converted to high dose regimen as above -not candidate for Remedsevir or plasma as outside window -eating and drinking well - robitussin w/ codeine or tessalon perles for cough -Finally improving as above (3) Depression with anxiety: Chronic -Continue Fluoxetine -Continue Hydroxyzine 50mg po BID -added melatonin prn sleep (4) GERD without esophagitis: -continue Protonix bid for GERD especially while on steroids (5) Back pain: mid back pain, MSK in nature -added voltaren gel -tylenol prn (6) Hyperuricemia: Chronic. Stable -Continue Allopurinol 100mg po daily (7) DVT prophylaxis: Ppx - Lovenox 40 BID Code - Full per discussion with patient Dispo - continued stay on PCU Updated his by phone on 01/06 and 01/08 Admission and Anticipated Discharge Date Admission Date: January 01, 2021 Subjective Patient feeling even better today. His FiO2 and high flow nasal cannula is weaned down to 50% when I saw him and his pulse ox stayed at 92% while he was talking to me, the flow was down to 35 L. He is in better spirits today. He is out of bed to chair and doing work on his computer. He has no other complaints. He is eating well, drinking, making urine. Telemetry with normal sinus rhythm and sinus bradycardia with rates in the 50s to 70s. Review of Systems Review of Systems: All systems reviewed & are unremarkable except as noted in HPI & below Physical Exam Constitutional: WD/WN, vitals as above Eyes: + anicteric sclerae Neck: trachea midline, no thyromegaly Respiratory: normal respiratory effort Auscultation: + crackles (Bilateral lower and middle lung dunlap); no diminished lung sounds (moving air much better today), no rhonchi and no wheezes Cardiovascular: RRR, no murmur, no edema Extremities: no calf tenderness Chest (Breasts): Chest: normal inspection of chest Gastrointestinal (Abdomen): normal bowel sounds, soft, nontender, no hepatosplenomegaly Musculoskeletal: Extremities: extremities normal to inspection; no cyanosis and no clubbing Skin: no rashes, warm and dry Neurologic: moves all extremities and awake; no focal motor deficits Psychiatric: A+Ox3, euthymic affect Lymphatic: no lymphedema Results & Data Results & Data ([facility]) Vital Signs (Past 12 Hours) Vital Signs Temp Pulse Pulse Resp BP BP Pulse Ox 01/08/21 16:45 92 H 01/08/21 16:02 36.4 C L 76 21 94/57 L 96 01/08/21 15:23 82 20 91 01/08/21 15:00 01/08/21 12:29 86 20 95 01/08/21 12:01 36.8 C 85 22 101/61 93 01/08/21 08:37 76 20 95 01/08/21 07:53 51 L 01/08/21 07:50 36.7 C 62 20 97/60 L 93 Pulse Ox 01/08/21 16:45 01/08/21 16:02 01/08/21 15:23 01/08/21 15:00 95 01/08/21 12:29 01/08/21 12:01 01/08/21 08:37 01/08/21 07:53 01/08/21 07:50 Laboratory Results 01/08/21 01/08/21 01/08/21 Range/Units 06:42 06:42 06:42 WBC 9.61 (4.8-10.8) K/uL RBC 4.38 L (4.7-6.1) M/uL Hgb 13.2 L (14.0-18.0) g/dL Hct 36.1 L (42-52) % MCV 82.4 (80-100) fL MCH 30.1 (25-34) pg MCHC 36.6 H (32-36) g/dL RDW Std Deviation 35.3 L (36.4-46.3) fL RDW Coeff of Stephanie 11.7 (11.5-14.5) % Plt Count 267 (130-400) K/uL MPV 9.7 (7.4-10.4) fL Immature Gran % (Auto) 2.2 % Neut % (Auto) 78.9 % Lymph % (Auto) 12.5 % Banner % (Auto) 5.1 % Eos % (Auto) 1.2 % Baso % (Auto) 0.1 % Neut # (Auto) 7.58 H (1.4-6.5) K/uL Lymph # (Auto) 1.20 (1.2-3.4) K/uL Banner # (Auto) 0.49 (0.11-0.59) K/uL Eos # (Auto) 0.12 (0-0.5) K/uL Baso # (Auto) 0.01 (0-0.2) K/uL Immature Gran # (Auto) 0.21 H (0.00-0.02) K/uL Sodium 138 (136-145) mmol/L Potassium 4.1 (3.5-5.1) mmol/L Chloride 106 (98-107) mmol/L Carbon Dioxide 28 (21-32) mmol/L Anion Gap 4.0 (3-11) BUN 25 H (7-18) mg/dl Creatinine 0.75 (0.6-1.4) mg/dl Est Cr Clr Drug Dosing 135.5 ml/min Est GFR ( Amer) 119.7 Est GFR (Non-Af Amer) 103.3 BUN/Creatinine Ratio 33.2 H (10-20) Glucose 86 (70-99) mg/dl Calcium 9.0 (8.5-10.1) mg/dl Magnesium 2.3 (1.8-2.4) mg/dl Total Bilirubin 0.4 (0.2-1) mg/dl AST 28 (15-37) U/L ALT 88 H (12-78) U/L Alkaline Phosphatase 121 H (45-117) U/L C-Reactive Protein 3.04 H (0-0.29) mg/dl NT-Pro-B Natriuret Pep 123 (0-900) pg/ml Total Protein 5.9 L (6.4-8.2) gm/dl Albumin 2.3 L (3.4-5.0) gm/dl Globulin 3.6 (2.5-4.0) gm/dl Albumin/Globulin Ratio 0.6 L (0.9-2) Diagnostic Findings Chest x-ray image from 01/08 personally reviewed by me agree with the following report: XR chest 1V portable HISTORY: Follow-up pneumonia. Shortness of breath. COMPARISON: 01/05/2021. FINDINGS: Interval progression of the multifocal bilateral airspace opacities consistent with a pneumonia. No pneumothorax. No pleural effusions. The heart remains mildly enlarged. There are low lung volumes. IMPRESSION: Interval progression of the multifocal airspace opacities consistent with a pneumonia. PG Care Time/CCT Total # of Minutes Spent Total Time Spent with Patient: Total time spent is greater than 50% in coordination of care (as documented) at patient's floor/unit and/or counseling patient: Coding Level of Care Code 87944 Subseq Hosp Care Lvl 3 Diagnoses Acute respiratory failure with hypoxia J96.01 COVID-19 U07.1 Depression with anxiety F41.8 GERD without esophagitis K21.9 Back pain M54.9 Hyperuricemia E79.0 DVT prophylaxis Z29.9
[2021-01-08] MEDS: FLUoxetine HCL 20 MG CAP PO SCH (20:08)
[2021-01-09 07:13] LABS: Basophils # (auto) 0.02 K/uL (0-0.2); Basophils % (auto) 0.2 %; Eosinophils # (auto) 0.14 K/uL (0-0.5); Eosinophils % (auto) 1.1 %; Hematocrit (blood only) 35.8 % (42-52); Hemoglobin 12.9 g/dL (14.0-18.0); Immature Granulocytes # (auto) 0.27 K/uL (0.00-0.02); Immature Granulocytes % (auto) 2.2 %; Lymphocytes # (auto) 1.41 K/uL (1.2-3.4); Lymphocytes % (auto) 11.2 %; Mean Corpuscular Hemoglobin 29.6 pg (25-34); Mean Corpuscular Volume 82.1 fL (80-100); Mean Platelet Volume 9.6 fL (7.4-10.4); Monocytes # (auto) 0.58 K/uL (0.11-0.59); Monocytes % (auto) 4.6 %; Neutrophils # (auto) 10.12 K/uL (1.4-6.5); Neutrophils % (auto) 80.7 %; Platelet Count 294 K/uL (130-400); RDW Coefficient of Variation 11.7 % (11.5-14.5); RDW Standard Deviation 34.9 fL (36.4-46.3); Red Blood Count 4.36 M/uL (4.7-6.1); White Blood Count 12.54 K/uL (4.8-10.8)
[2021-01-09 07:43] LABS: Albumin Level 2.3 gm/dl (3.4-5.0); BUN Creatinine Ratio 27.9 (10-20); C Reactive Protein 2.78 mg/dl (0-0.29); Calcium 8.7 mg/dl (8.5-10.1); Creatinine Clr Calc Pharmacy 147.3 ml/min; Est GFR (African American) 123.9; Est GFR (Non-African American) 106.9; Potassium 3.9 mmol/L (3.5-5.1)
[2021-01-09 07:48] LABS: Albumin Globulin Ratio 0.6 (0.9-2); Bilirubin,Total 0.4 mg/dl (0.2-1); Globulin 3.7 gm/dl (2.5-4.0)
[2021-01-09] MEDS ORDERED: FUROSEMIDE 20 MG in SYRINGE 0 ML IV ONE (08:30)
[2021-01-09] MEDS: hydrOXYzine HCl 25 MG TAB PO SCH ×2 (09:20→20:28)
[2021-01-09] MEDS: allopurinoL 100 MG TAB PO SCH (09:20)
[2021-01-09] MEDS: PANTOprazole 40 MG TAB PO SCH ×2 (09:26→20:28)
[2021-01-09] MEDS: ENOXAPARIN INJ 40 MG/0.4 ML SYR SQ SCH ×2 (09:26→20:27)
[2021-01-09] MEDS: guaiFENesin 600 MG TABCR PO SCH ×2 (09:27→20:28)
[2021-01-09] MEDS: DICLOFENAC SOD 1% GEL 100 GM TUBE EXT SCH ×4 (09:28→20:29)
[2021-01-09] MEDS: dexAMETHasone 20 MG in DEXTROSE 5% 25 ML IV SCH (09:57)
--- NOTE | 2021-01-09 11:46 | Pulmonology Progress Note ---
Date of Service January 09, 2021 Assessment & Plan (1) Acute respiratory failure with hypoxia: Chest x-ray 01/05/2021 personally reviewed: Portable film, poor inspiratory effort, bilateral diffuse opacities are appreciated. Retrocardiac opacity also appreciated. --Acute hypoxic respiratory failure Secondary to multilobar pneumonia from COVID-19 COVID-19 positive on 12/23/2020 CRP 12.1 --> 10.9 --> 3.04 --> 2.78 Positive lymphopenia Not a candidate for remdesivir. Dexamethasone increased to 20 mg IV daily. This should be the dose for five days and then decrease to 10mg for 5 days Continue with PPI twice daily Continue with O2 supplementation to keep oxygen saturation greater than 90% BiPAP nightly and as needed shortness of breath. Transition between high flow and BiPAP Patient encouraged to lay on his side or are prone on his belly with sleep. He states that he has a longstanding back injury and is unable to lay on his belly. Continue incentive spirometry and flutter valve. Continue Mucinex Plan: Patient requirement is improving gradually. Trial of nasal cannula today. Continue with BiPAP nightly and as needed shortness of breath Continue with incentive spirometry. 20 mg of Lasix given today. Starting tomorrow change dexamethasone 10 mg for 5 days daily and then can be stopped. Pulmonary will follow peripherally. Call directly with any questions. Please note the above document was generated using voice recognition software. It may contain grammatical, syntax or spelling errors.Any formal questions or concerns about the content, text or information contained within the body of this dictation should be directly addressed to the provider for clarification. (2) Pneumonia due to severe acute respiratory syndrome coronavirus 2 (SARS-CoV-2): (3) COVID-19: Admission and Anticipated Discharge Date Admission Date: January 01, 2021 Subjective Patient seen and examined at bedside. No acute distress, no adverse events overnight. At time of examination patient was saturating 94% on 25 L, 40% high flow Denies any chest pain, no shortness of breath. He is urinating well. Denies any headache, no dizziness, no cough. Review of Systems Review of Systems: All systems reviewed & are unremarkable except as noted in Subjective Physical Exam Physical Exam: Constitutional: No acute distress HEENT: EOMI, PERRLA Respiratory system: Decreased air entry bilaterally, no wheeze, no, positive crackles bilaterally CVS: S1-S2 positive, no murmurs or gallops Abdomen: Soft, nontender, nondistended, positive bowel sounds x4 Extremities: +2 pulses bilaterally radialis/ dorsalis pedis, no cyanosis, no edema Neuro: Awake alert oriented x3 Psych: Normal mood and affect G/U: No Rich Skin: no rashes, warm and dry Lymphatic: no cervical or axillary lymphadenopathy Results & Data Results & Data ([facility]) Vital Signs (Past 12 Hours) Vital Signs Temp Pulse Pulse Resp BP Pulse Ox 01/09/21 11:17 36.8 C 82 18 96/58 L 93 01/09/21 08:19 55 L 01/09/21 07:53 36.4 C L 58 L 19 113/68 96 01/09/21 07:16 58 L 26 H 97 01/09/21 04:42 36.6 C 57 L 18 109/66 97 01/09/21 03:19 56 L 24 93 01/09/21 00:06 66 24 94 01/09/21 06:28 01/09/21 06:28 PG Care Time/CCT Total # of Minutes Spent Total Time Spent with Patient: Total time spent is greater than 50% in coordination of care (as documented) at patient's floor/unit and/or counseling patient: Coding Level of Care Code 56295 Subseq Hosp Care Lvl 3 Diagnoses Acute respiratory failure with hypoxia J96.01 Pneumonia due to severe acute respiratory syndrome coronavirus 2 (SARS-CoV-2) U07.1; J12.82 COVID-19 U07.1
--- NOTE | 2021-01-09 15:31 | Hospitalist Progress Note ---
Date of Service January 09, 2021 Assessment & Plan (1) Acute respiratory failure with hypoxia: due to COVID 19 pneumonia, worsening resp distress on 01/05 and POx mid 80s on max HFNC settings with some tachypnea Was placed on BiPAP 09/19 and then was alternating between BiPAP and high flow nasal cannula Now finally significantly improved and is weaned off HFNC down to 4 L nasal cannula Continues to be wearing BiPAP qhs but will not need this upon discharge Continues out of bed to chair, ambulating around the room, incentive spirometry CXR slightly worse infiltrates on left on 01/05 Chest x-ray on 01/08 again with progressing consolidative opacities but clinically he is improving CRP trending downward to 2 from 15 initially -appreciate PULM consult -continue dexamethasone high-dose regimen 20mg IV daily x 5 days and then tomorrow start 10mg daily x 5 days -continue albuterol prn -continue flutter valve 3 times daily, incentive spirometry -Follow chest x-ray if worsening and eventually to resolution as an outpatient -Would recommend follow-up with pulmonology in 1 month after discharge -IV Lasix x1 dose given on 01/09 (2) COVID-19: Severe Covid-19. Hypoxia with saturation of 78% on room air on arrival. -with fever again on 01/04 but none since On admission, labs with lymphopenia, mild hyponatremia with Qw=498 and mild elevation of liver enzymes. CXR with bilateral airspace disease. -continue dexamethasone and converted to high dose regimen as above -not candidate for Remedsevir or plasma as outside window -eating and drinking well - robitussin w/ codeine or tessalon perles for cough -Finally improving as above (3) Depression with anxiety: Chronic -Continue Fluoxetine -Continue Hydroxyzine 50mg po BID - melatonin prn sleep (4) GERD without esophagitis: -continue Protonix bid for GERD especially while on steroids (5) Back pain: mid back pain, MSK in nature-now improved -Continue voltaren gel -tylenol prn (6) Hyperuricemia: Chronic. Stable -Continue Allopurinol 100mg po daily (7) DVT prophylaxis: Ppx - Lovenox 40 BID Code - Full per discussion with patient Dispo - continued stay on PCU but significantly improved, patient is hopeful to be discharged by Sunday but may need home O2 Updated his by phone on 01/06 and 01/08 Admission and Anticipated Discharge Date Admission Date: January 01, 2021 Subjective Patient much improved today. Was weaned off high flow nasal cannula to 4 L nasal cannula and doing well with that. He has no complaints and feels hopeful that he will continue to improve. Telemetry with sinus bradycardia with rates in the 40s to 70s Review of Systems Review of Systems: All systems reviewed & are unremarkable except as noted in HPI & below Physical Exam Constitutional: WD/WN, vitals as above Eyes: + anicteric sclerae Neck: trachea midline, no thyromegaly Respiratory: normal respiratory effort Auscultation: + crackles (Bilateral lower and middle lung dunlap); no diminished lung sounds (moving air much better today), no rhonchi and no wheezes Cardiovascular: RRR, no murmur, no edema Extremities: no calf tenderness Chest (Breasts): Chest: normal inspection of chest Gastrointestinal (Abdomen): normal bowel sounds, soft, nontender, no hepatosplenomegaly Musculoskeletal: Extremities: extremities normal to inspection; no cyanosis and no clubbing Skin: no rashes, warm and dry Neurologic: moves all extremities and awake; no focal motor deficits Psychiatric: A+Ox3, euthymic affect Lymphatic: no lymphedema Results & Data Results & Data ([facility]) Vital Signs (Past 12 Hours) Vital Signs Temp Pulse Pulse Resp BP Pulse Ox 01/09/21 11:57 63 18 92 01/09/21 11:17 36.8 C 82 18 96/58 L 93 01/09/21 08:19 55 L 01/09/21 07:53 36.4 C L 58 L 19 113/68 96 01/09/21 07:16 58 L 26 H 97 01/09/21 04:42 36.6 C 57 L 18 109/66 97 Laboratory Results 01/09/21 01/09/21 Range/Units 06:28 06:28 WBC 12.54 H (4.8-10.8) K/uL RBC 4.36 L (4.7-6.1) M/uL Hgb 12.9 L (14.0-18.0) g/dL Hct 35.8 L (42-52) % MCV 82.1 (80-100) fL MCH 29.6 (25-34) pg MCHC 36.0 (32-36) g/dL RDW Std Deviation 34.9 L (36.4-46.3) fL RDW Coeff of Stephanie 11.7 (11.5-14.5) % Plt Count 294 (130-400) K/uL MPV 9.6 (7.4-10.4) fL Immature Gran % (Auto) 2.2 % Neut % (Auto) 80.7 % Lymph % (Auto) 11.2 % Cameron % (Auto) 4.6 % Eos % (Auto) 1.1 % Baso % (Auto) 0.2 % Neut # (Auto) 10.12 H (1.4-6.5) K/uL Lymph # (Auto) 1.41 (1.2-3.4) K/uL Cameron # (Auto) 0.58 (0.11-0.59) K/uL Eos # (Auto) 0.14 (0-0.5) K/uL Baso # (Auto) 0.02 (0-0.2) K/uL Immature Gran # (Auto) 0.27 H (0.00-0.02) K/uL Sodium 137 (136-145) mmol/L Potassium 3.9 (3.5-5.1) mmol/L Chloride 107 (98-107) mmol/L Carbon Dioxide 25 (21-32) mmol/L Anion Gap 5.0 (3-11) BUN 19 H (7-18) mg/dl Creatinine 0.69 (0.6-1.4) mg/dl Est Cr Clr Drug Dosing 147.3 ml/min Est GFR ( Amer) 123.9 Est GFR (Non-Af Amer) 106.9 BUN/Creatinine Ratio 27.9 H (10-20) Glucose 109 H (70-99) mg/dl Calcium 8.7 (8.5-10.1) mg/dl Total Bilirubin 0.4 (0.2-1) mg/dl AST 26 (15-37) U/L ALT 77 (12-78) U/L Alkaline Phosphatase 118 H (45-117) U/L C-Reactive Protein 2.78 H (0-0.29) mg/dl NT-Pro-B Natriuret Pep 122 (0-900) pg/ml Total Protein 6.0 L (6.4-8.2) gm/dl Albumin 2.3 L (3.4-5.0) gm/dl Globulin 3.7 (2.5-4.0) gm/dl Albumin/Globulin Ratio 0.6 L (0.9-2) PG Care Time/CCT Total # of Minutes Spent Total Time Spent with Patient: Total time spent is greater than 50% in coordination of care (as documented) at patient's floor/unit and/or counseling patient: Coding Level of Care Code 33043 Subseq Hosp Care Lvl 3 Diagnoses Acute respiratory failure with hypoxia J96.01 COVID-19 U07.1 Depression with anxiety F41.8 GERD without esophagitis K21.9 Back pain M54.9 Hyperuricemia E79.0 DVT prophylaxis Z29.9
[2021-01-09] MEDS: FLUoxetine HCL 20 MG CAP PO SCH (20:29)
[2021-01-10] MEDS: guaiFENesin 600 MG TABCR PO SCH ×2 (08:49→20:48)
[2021-01-10] MEDS: PANTOprazole 40 MG TAB PO SCH ×2 (08:49→20:49)
[2021-01-10] MEDS: dexAMETHasone 10 MG in SYRINGE 0 ML IV SCH (08:49)
[2021-01-10] MEDS: ENOXAPARIN INJ 40 MG/0.4 ML SYR SQ SCH ×2 (08:49→20:46)
[2021-01-10] MEDS: allopurinoL 100 MG TAB PO SCH (08:50)
[2021-01-10] MEDS: hydrOXYzine HCl 25 MG TAB PO SCH ×2 (08:50→20:50)
[2021-01-10] MEDS: DICLOFENAC SOD 1% GEL 100 GM TUBE EXT SCH ×4 (08:51→20:47)
[2021-01-10 08:57] LABS: Creatinine Clr Calc Pharmacy 128.6 ml/min; Est GFR (African American) 117.2; Est GFR (Non-African American) 101.1; Potassium 4.3 mmol/L (3.5-5.1)
[2021-01-10] MEDS ORDERED: FUROSEMIDE 20 MG in SYRINGE 0 ML IV SCH (11:00)
--- NOTE | 2021-01-10 11:02 | Hospitalist Progress Note ---
Date of Service January 10, 2021 Assessment & Plan (1) Acute respiratory failure with hypoxia: due to COVID 19 pneumonia, worsening resp distress on 01/05 and POx mid 80s on max HFNC settings with some tachypnea Was placed on BiPAP 09/19 and then was alternating between BiPAP and high flow nasal cannula Now finally significantly improved and is weaned off HFNC down to 4 L nasal cannula Continues to be wearing BiPAP qhs but will not need this upon discharge will not use tonight, see how he sleeps without it Continues out of bed to chair, ambulating around the room, incentive spirometry will desaturate with activity but recovers very quickly CXR slightly worse infiltrates on left on 01/05 Chest x-ray on 01/08 again with progressing consolidative opacities but clinically he is improving CRP trending downward to 2 from 15 initially -appreciate PULM consult -continue dexamethasone high-dose regimen 20mg IV daily x 5 days and then today started 10mg daily x 5 days and then can stop can change to PO dexamethasone on discharge -continue albuterol prn -continue flutter valve 3 times daily, incentive spirometry -Would recommend follow-up with pulmonology in 1 month after discharge -IV Lasix x1 dose given on 01/09 great response, negative 4L BUN/Cr and K are stable, will repeat dose today, see if we can wean oxygen further (2) COVID-19: Severe Covid-19. Hypoxia with saturation of 78% on room air on arrival. -with fever again on 01/04 but none since On admission, labs with lymphopenia, mild hyponatremia with Za=324 and mild elevation of liver enzymes. CXR with bilateral airspace disease. -continue dexamethasone and converted to high dose regimen as above, now on 10mg daily for 5 more days -not candidate for Remedsevir or plasma as outside window -eating and drinking well - robitussin w/ codeine or tessalon perles for cough -Finally improving as above might be ready for discharge tomorrow (3) Depression with anxiety: Chronic -Continue Fluoxetine -Continue Hydroxyzine 50mg po BID - melatonin prn sleep (4) GERD without esophagitis: -continue Protonix bid for GERD especially while on steroids (5) Back pain: mid back pain, MSK in nature-now improved -Continue voltaren gel -tylenol prn (6) Hyperuricemia: Chronic. Stable -Continue Allopurinol 100mg po daily (7) DVT prophylaxis: Ppx - Lovenox 40 BID Code - Full per discussion with patient Dispo - plan for two step tomorrow if he remains stable and can likely go home tomorrow afternoon, would only expect him to continue to improve from this point on Admission and Anticipated Discharge Date Admission Date: January 01, 2021 Subjective patient doing well, sitting up in a chair doing work on his laptop, no distress at all he says he feels great, he is on 4L wall flow high flow, will desaturate briefly when walking around but only to 80's and recovers immediately eating and drinking really well, no fever/chills, no cough, no diarrhea responded really well to lasix 20mg IV yesterday, negative 4 liters, says he peed all day long, he is open to getting another dose today slept with BIPAP last night, told him to try to sleep on just nasal canula this evening, he agrees he really wants to go home, discussed that I would like to get him down a little further, 2L NC at rest but at this point would only expect him to get better reviewed chart from the past week checked labs today, K is 4.3 and Cr is < 1 after Lasix Review of Systems Review of Systems: All systems reviewed & are unremarkable except as noted in Subjective Constitutional: no fever, no chills, no sweats, no fatigue and no weakness Respiratory: + dyspnea on exertion; no cough, no chest congestion, no dyspnea and no sputum production Cardiovascular: no chest pain and no edema Gastrointestinal: no abdominal pain, no nausea, no vomiting, no constipation and no diarrhea/loose stools Physical Exam Constitutional: WD/WN, vitals as above comfortable; no acute distress Neck: trachea midline, no thyromegaly Respiratory: normal respiratory effort; no respiratory distress, no labored breathing and no cough Auscultation: lungs clear to auscultation bilaterally Cardiovascular: RRR, no murmur, no edema Gastrointestinal (Abdomen): normal bowel sounds, soft, nontender, no hepatosplenomegaly Musculoskeletal: no cyanosis or clubbing, extremities motor strength 5/5 Skin: no rashes, warm and dry Neurologic: patellar DTR's 2+ bilat, sensation intact and PERRL, EOMI, accommodation nl, no face palsy, no dysarthria Psychiatric: A+Ox3, euthymic affect Lymphatic: no cervical or axillary lymphadenopathy Results & Data Results & Data ([facility]) Vital Signs (Past 12 Hours) Vital Signs Temp Pulse Pulse Resp BP BP Pulse Ox 01/10/21 07:37 66 24 95 01/10/21 07:20 36.7 C 59 L 22 103/65 97 01/10/21 07:00 61 01/10/21 05:05 36.6 C 61 19 116/71 97 01/10/21 03:41 16 94 01/09/21 23:28 18 94 01/09/21 23:03 36.9 C 64 18 107/71 93 Laboratory Results Laboratory Results - last 24 hr 01/10/21 08:12 Sodium 137 Potassium 4.3 Chloride 106 Carbon Dioxide 28 Anion Gap 4.0 BUN 21 H Creatinine 0.79 Est Cr Clr Drug Dosing 128.6 Est GFR ( Amer) 117.2 Est GFR (Non-Af Amer) 101.1 BUN/Creatinine Ratio 27.0 H Glucose 101 H Calcium 9.0 Medications Administered Current Inpatient Medications Acetaminophen (Acetaminophen 325 Mg Tab) 650 mg PO Q4H PRN PRN Reason: Pain or Fever Stop: 01/31/21 04:58 Last Admin: 01/04/21 04:38 Dose: 650 mg Documented by: Al Hydrox/Mg Hydrox/Simethicone (Aluminum/Magnesium Susp 30 Ml Udc) 15 ml PO Q6H PRN PRN Reason: Heartburn Stop: 02/01/21 19:47 Albuterol (Albuterol Hfa 8 Gm Inhaler) 2 puffs INH Q4H PRN PRN Reason: Shortness Of Breath Stop: 01/31/21 04:58 Allopurinol (Allopurinol 100 Mg Tab) 100 mg PO DAILY YASMIN Stop: 01/31/21 08:59 Last Admin: 01/10/21 08:50 Dose: 100 mg Documented by: Benzonatate (Benzonatate 100 Mg Capsule) 200 mg PO TID PRN PRN Reason: cough Stop: 01/31/21 04:58 Diclofenac Sodium (Diclofenac Sod 1% Gel 100 Gm Tube) 2 gm EXT QID YASMIN Stop: 02/06/21 16:59 Last Admin: 01/10/21 08:51 Dose: Not Given Documented by: Enoxaparin Sodium (Enoxaparin Inj 40 Mg/0.4 Ml Syr) 40 mg SQ Q12H YASMIN Stop: 01/31/21 08:59 Last Admin: 01/10/21 08:49 Dose: 40 mg Documented by: Fluoxetine HCl (Fluoxetine Hcl 20 Mg Cap) 20 mg PO HS YASMIN Stop: 02/05/21 21:59 Last Admin: 01/09/21 20:29 Dose: 20 mg Documented by: Guaifenesin (Guaifenesin 600 Mg Tabcr) 1,200 mg PO Q12 YASMIN Stop: 02/04/21 20:59 Last Admin: 01/10/21 08:49 Dose: 1,200 mg Documented by: Guaifenesin/Codeine Phosphate (Guaifenesin/Codeine 100mg/10mg 5ml Udc) 5 ml PO Q6H PRN PRN Reason: Cough Stop: 01/31/21 16:05 Last Admin: 01/03/21 12:14 Dose: 5 ml Documented by: Hydroxyzine HCl (Hydroxyzine Hcl 25 Mg Tab) 50 mg PO BID YASMIN Stop: 02/05/21 20:59 Last Admin: 01/10/21 08:50 Dose: 50 mg Documented by: Dexamethasone 10 mg/ Syringe 2.5 mls @ 1 mls/min IV DAILY YASMIN Stop: 01/15/21 08:59 Last Admin: 01/10/21 08:49 Dose: 1 mls/min Documented by: Furosemide 20 mg/ Syringe 2 mls @ 4 mls/min IV 1100 YASMIN Stop: 01/10/21 12:00 Melatonin (Melatonin 3 Mg Tab) 6 mg PO HS PRN PRN Reason: Sleep Stop: 02/02/21 11:14 Ondansetron HCl (Ondansetron Inj 2 Mg/Ml 2 Ml Vial) 4 mg IV Q6H PRN PRN Reason: Nausea Stop: 01/31/21 04:58 Pantoprazole Sodium (Pantoprazole 40 Mg Tab) 40 mg PO BID YASMIN Stop: 02/04/21 20:59 Last Admin: 01/10/21 08:49 Dose: 40 mg Documented by: PG Care Time/CCT Total # of Minutes Spent Total Time Spent with Patient: Total time spent is greater than 50% in coordination of care (as documented) at patient's floor/unit and/or counseling patient: Coding Level of Care Code 10020 Subseq Hosp Care Lvl 2 Diagnoses Acute respiratory failure with hypoxia J96.01 COVID-19 U07.1 Depression with anxiety F41.8 GERD without esophagitis K21.9 Back pain M54.9 Hyperuricemia E79.0 DVT prophylaxis Z29.9
[2021-01-10] MEDS: FLUoxetine HCL 20 MG CAP PO SCH (20:43)
[2021-01-11] MEDS: hydrOXYzine HCl 25 MG TAB PO SCH (08:58)
[2021-01-11] MEDS: ENOXAPARIN INJ 40 MG/0.4 ML SYR SQ SCH (08:58)
[2021-01-11] MEDS: allopurinoL 100 MG TAB PO SCH (08:58)
[2021-01-11] MEDS: dexAMETHasone 10 MG in SYRINGE 0 ML IV SCH (08:58)
[2021-01-11] MEDS: DICLOFENAC SOD 1% GEL 100 GM TUBE EXT SCH ×2 (08:59→13:33)
[2021-01-11] MEDS: guaiFENesin 600 MG TABCR PO SCH (08:59)
[2021-01-11] MEDS: PANTOprazole 40 MG TAB PO SCH (08:59)
--- NOTE | 2021-01-11 11:56 | Discharge Summary ---
Date of Service January 11, 2021 Admission HPI Per Admitting Provider Marquis Song is a 55yo male presenting with Covid-19 PNA, hypoxia. Patient reports having a dry cough ongoing for several weeks as well as fever. He was found to be positive for Covid-19 on 12/23/20. He has been at home with family in quarantine for the last several days. He was seen by his PCP on 12/29/20 via Telehealth visit with complaint of ongoing cough. He was given prescription for Prednisone 9 day taper and Tessalon as needed. He has had worsening of his shortness of breath over the last three days as well as ongoing dry cough, intermittent fevers and fatigue, myalgias. Patient has been monitoring his oxygen saturations over the last several days - states that they were very low this morning - 70%. He presents today with worsening shortness of breath, persistent cough and concern for hypoxia. Upon arrival to the ER he was noted to be ashen in color and diaphoretic, febrile at 38.1, tachycardic at 101, RR of 22 saturating 78% on room air. His saturation improved with supplemental O2. He is presently 92% on 5L NC. He is tachypneic at 30 breaths/minute Patient with no additional complaints at this time. He complains of cough and SOB, otherwise denies chest pain, palpitations, abdominal pain, nausea, vomiting, diarrhea, loss of taste or smell or syncope. Principal Diagnosis Severe COVID 19 pneumonia, acute hypoxic respiratory failure Discharge Exam Constitutional WD/WN, vitals as above comfortable; no acute distress Neck trachea midline, no thyromegaly Respiratory normal respiratory effort; no respiratory distress, no labored breathing and no cough Auscultation: lungs clear to auscultation bilaterally Cardiovascular RRR, no murmur, no edema Gastrointestinal (Abdomen) normal bowel sounds, soft, nontender, no hepatosplenomegaly Musculoskeletal no cyanosis or clubbing, extremities motor strength 5/5 Skin no rashes, warm and dry Neurologic patellar DTR's 2+ bilat, sensation intact and PERRL, EOMI, accommodation nl, no face palsy, no dysarthria Psychiatric A+Ox3, euthymic affect Lymphatic no cervical or axillary lymphadenopathy Discharge Data Allergies Allergy/AdvReac Type Severity Reaction Status Date / Time No Known Drug Allergies Allergy Unknown Verified 01/01/21 00:25 Consultations 01/01/21 02:25 ED Decision to Admit Stat 01/05/21 08:46 Consult Pulmonology Routine Hospital Course (1) Acute respiratory failure with hypoxia: due to COVID 19 pneumonia, worsening resp distress on 01/05 and POx mid 80s on max HFNC settings with some tachypnea Was placed on BiPAP 09/19 and then was alternating between BiPAP and high flow nasal cannula Now finally significantly improved and is weaned off HFNC down to 2 L nasal cannula at rest Continues out of bed to chair, ambulating around the room, incentive spirometry will desaturate with activity but recovers very quickly CXR slightly worse infiltrates on left on 01/05 Chest x-ray on 01/08 again with progressing consolidative opacities but clinically he is improving CRP trending downward to 2 from 15 initially -treated with dexamethasone high-dose regimen 20mg IV daily x 5 days and then today started 10mg daily x 5 days can change to PO dexamethasone on discharge, complete three more days at 10mg daily -continue albuterol prn -continue flutter valve 3 times daily, incentive spirometry -Would recommend follow-up with pulmonology in 1 month after discharge -IV Lasix 20mg given on 01/09 and 01/10 with good response, negative 4 liters, breathing well 2 step on day of discharge showed he needed 2L at rest he desaturated with exertion, required 6L nasal canula, although he dropped to 80's he did not feel short of breath took several minutes to recover he has excellent support system at home with his and daughter he knows that he will be short of breath for the next 2-3 weeks does not plan to leave the house, will take it easy, minimal exertion follow up with PCP in one week, pulmonary medicine in about a month (2) COVID-19: Severe Covid-19. Hypoxia with saturation of 78% on room air on arrival. -continue dexamethasone and converted to high dose regimen as above, now on 10mg daily, needs 3 more days -eating and drinking well (3) Depression with anxiety: Chronic -Continue Fluoxetine -Continue Hydroxyzine 50mg po BID - melatonin prn sleep (4) GERD without esophagitis: -continue Protonix bid for GERD especially while on steroids (5) Back pain: mid back pain, MSK in nature-now improved -Continue voltaren gel -tylenol prn (6) Hyperuricemia: Chronic. Stable -Continue Allopurinol 100mg po daily (7) DVT prophylaxis: Ppx - Lovenox 40 BID Total Time Total Time Spent Total Time Spent (In Minutes): 35 Total Time Includes: Examination of the Patient, Discharge Planning, Medication Reconciliation and Other (spoke with over the phone about discharge plans) Discharge Plan Discharge Items Patient Disposition: Home - Self-Care Reason For Visit: COVID-19, PNA, HYPOXIA Discharge Diagnosis: COVID 19 pneumonia Acute hypoxic respiratory failure Condition on Discharge: Good Goals: slowly wean off oxygen as tolerated stay well nourished, well hydrated, well rested complete 3 more days of high dose dexamethasone Activity: Per Instructions section Lifting: None Bathing: No limitations Exercise/Sports: Gradually increase as tolerated Exercise Comment: listen to your body, stop to rest frequently and catch your breath Weightbearing: Full weightbearing Non-emergency contact: Primary Care Provider Call non-emergency contact if: you have any medication questions and your symptoms worsen Follow-up/Referrals: Toni Garcia DO [Primary Care Provider] - 01/17/21 9:20 am (one week, DR [facility] OFFICE WILL CALL YOU FOR THIS APT FOLLOW UP) Javier Jones MD [Physician] - 02/03/21 10:00 am (3-4 weeks, COVID 19 follow up) Diet: Regular Addtl Attending Provider Instructions: Medications: - DEXAMETHASONE: 10mg daily for 3 more days then stop - PROTONIX: reduces acid in stomach, protection from ulcers while on steroids, take for at least 10 more days, can stop after that or finish a 30 day course COVID 19 pneumonia, severe infection with acute hypoxic respiratory failure, ARDS slowly improving, down to 2L at rest but requiring 6L on exertion quickly desaturate with activity, so take it easy, listen to your body, don't push too much and take frequent breaks prior to doing any activity, would increase oxygen to 6L for a minute to flood lungs with oxygen, then perform the activity and if you feel short of breath stop and rest until you recover you will likely need oxygen for 2-3 weeks check your pulse ox at home, want it > 88% you have come a long way, required high dose dexamethasone with 20mg daily for 5 days, now on 10mg daily for 3 more days should continue to slowly improve from this point on recommend follow up with pulmonology in 3-4 weeks, will make a referral for you Pending Studies at Discharge: No Stand-Alone Forms: My [facility], Smoking Cessation Medications and DC Order Prescriptions: New pantoprazole 40 mg Tablet,Delayed Release (Dr/Ec) 40 mg PO DAILY Qty: 30 RF: 0 dexamethasone 4 mg tablet 10 mg PO DAILY 3 Days Qty: 8 RF: 0 Continued fluoxetine 20 mg capsule 20 mg PO DAILY Qty: 90 RF: 1 hydroxyzine HCl 50 mg tablet 50 mg PO BID PRN (Reason: anxiety and depression) Qty: 180 RF: 1 colchicine 0.6 mg tablet 0.6 mg PO .COMPLEX Qty: 3 RF: 1 fluticasone propion-salmeterol [Advair Diskus] 100-50 mcg/dose blister with device 1 inh inhalation BID Qty: 60 RF: 0 promethazine-DM 6.25-15 mg/5 mL syrup 5 ml PO Q6H PRN (Reason: cough) Qty: 473 RF: 0 allopurinol 100 mg tablet 100 mg PO DAILY Qty: 90 RF: 1 lansoprazole 15 mg capsule,delayed release(DR/EC) 15 mg PO DAILY PRN (Reason: heartburn) RF: 0 benzonatate 200 mg capsule 200 mg PO TID PRN (Reason: cough) Qty: 30 RF: 0 Discontinued prednisone 20 mg tablet 20 mg PO DAILY Qty: 18 RF: 0 Discharge Orders: Discharge Order (Routine); Ordered 01/11/21 Ordered By: Kingsley Beck Admission Data Admit Date/Time: 01/01/21 02:53 Attending Provider: Kingsley Beck Admit Provider: Marlen Olivier Primary Care Provider: Toni Garcia Other Providers: Marlen Olivier ; Javier Jones Other Interventions: Discharge Summary Assessment (RN) Last Done: 01/11/21 13:58 Supervising Physician Co-Signing Physician Notes I saw and evaluated the patient with Davie cowart, and agree with findings and plan as documented in the note. Patient seen and examined at bedside. No acute distress. Patient was on BiPAP 09/19 60% saturating 94%. He was breathing in the low to mid 20s. Patient denies any significant cough. No hemoptysis. States that he is the same. Prefers BiPAP more than high flow. Would continue interchanging between high flow and BiPAP. Keep O2 saturation greater than 88%. Incentive spirometry. Please note the above document was generated using voice recognition software. It may contain grammatical, syntax or spelling errors.Any formal questions or concerns about the content, text or information contained within the body of this dictation should be directly addressed to the provider for clarification. Coding Level of Care Code D/C Day Management >30 mins Diagnoses Acute respiratory failure with hypoxia J96.01 COVID-19 U07.1 Depression with anxiety F41.8 GERD without esophagitis K21.9 Back pain M54.9 Hyperuricemia E79.0 DVT prophylaxis Z29.9
== END 2021-01-11 15:36 | disposition home or self-care (01) | DRG 177 ==
LOC: ED 23:42 → 2S 01-01 02:53 → SUATTDRO 01-01 02:53 → 2S 01-01 04:10